=== PATIENT | female | born 1985 | race Caucasian/White ===

== ENCOUNTER 2021-06-16 14:24 | Outpatient (REF) | payer MEDICAID, SELFPAY | END 2021-06-16 14:25 | disposition home or self-care (01) | LOC: HO.LAB 14:24 | PROVIDERS: PCP Internal Medicine; Visit Provider Internal Medicine | DX: Z20.822 Contact with and (suspected) exposure to COVID-19 (principal) | CPT/HCPCS: C9803; U0003; U0005 ==

== ENCOUNTER 2022-02-18 08:52 | Emergency (ER) | payer MEDICAID, SELFPAY ==
[2022-02-18 09:42] VITALS: BP 134/85; PULSE 70; RESP 16; TEMP 36.9; O2SAT 97; BMI 32.3
[2022-02-18 10:08] LABS: COVID-19 Test Negative (Negative); IDNOW Serial# 9DB6401D
[2022-02-18 10:09] LABS: IDNOW Serial# 55D5AD1C; Influenza A Negative (Negative); Influenza B2 Negative (Negative)
[2022-02-18 11:35] VITALS: BP 130/89; PULSE 77; RESP 18; TEMP 36.7; O2SAT 97
--- NOTE | 2022-02-18 11:52 | ED_ITS ---
HPI - General Adult General Chief complaint: Upper Respiratory Symptoms Stated complaint: sorethroat , ear pain Time Seen by Provider: 02/18/22 11:19 Source: patient Mode of arrival: ambulatory Limitations: no limitations History of Present Illness HPI narrative: [age] year female presents to ED for sore throat, ear pain, and body aches for a few days. Patient states no chest pain or shortness of breath. Patient denies any coughing. Patient denies any swelling of lower extremities, redness, chest pain, shortness of breath, abdominal pain, diarrhea, neck stiffness, photophobia, dysuria, hematuria, or flank pain Related Data Allergies Allergy/AdvReac Type Severity Reaction Status Date / Time No Known Allergies Allergy Verified 02/18/22 09:42 Review of Systems Review of Systems: Sore throat, ear pain, body aches, and headache Yes all other systems are reviewed and are negative [facility] Social History Social History Advance Directives: No Advance Directives Information Provided: No Physical Exam ED Vital Signs: Vital Signs - 24 hr 02/18/22 09:42 02/18/22 11:35 Temperature 98.5 F 98.1 F Pulse Rate 70 77 Respiratory Rate 16 18 Blood Pressure 134/85 130/89 Pulse Oximetry 97 97 BMI result Body Mass Index 32.3 Const General: cooperative, healthy appearing, comfortable, no acute distress, well developed, alert, awake and Physically active Orientation/consciousness: oriented to time and patient [facility]3 [facility]: Yes normal to inspection, Yes No palpable skull fracture present, Yes normocephalic, Yes atraumatic and No abrasion Ears: hearing grossly normal bilaterally, external ears normal, TM's normal bilaterally, EAC's normal, mastoids normal and no periauricular adenopathy Throat: Yes posterior oropharynx normal, Yes tonsils normal and Yes uvula midline Eyes General: appearance normal, both eyes and all related structures Neck Neck: Yes normal visual inspection, Yes full ROM, Yes no lymphadenopathy, Yes no meningeal signs, Yes trachea midline, Yes supple, No anterior neck swelling and No tender Chest Chest palpation & inspection: normal inspection of the chest and normal palpation of entire chest wall Resp Effort & Inspection: normal respiratory effort and able to speak in complete sentences Auscultation: clear to auscultation bilaterally Cardio Jugular venous distension: no JVD Heart sounds: S1 normal heart sound present and S2 normal heart sound present GI Inspection: Yes normal to inspection and No abdominal wall ecchymosis Palpation (GI): Soft to palpation, not firm, nontender, no guarding and not rigid General: No CVA tenderness and Yes no CVA tenderness Back/Spine/Pelvis Back: no CVA tenderness, No CVA tenderness and No back tenderness Skin General skin exam: no rashes or lesions noted and elasticity normal Neuro General: oriented to time, patient oriented x3, gait normal and no meningeal signs Cranial nerves: Yes CN's II-XII intact bilaterally Extrem General: Yes normal to inspection and Yes full ROM Psych Appearance: grossly normal, well kempt and not disheveled Course Course Course Narrative: COVID and influenza swab ordered. Reevaluation(s) Reevaluation #1: Patient well-appearing. Strep ordered. Will call with results. COVID influenza negative Time: 11:57 Medical Decision Making [facility] Narrative Medical decision making narrative: Viral syndrome Lab Data Labs: Lab Results 02/18/22 02/18/22 02/18/22 Range/Units 09:43 09:43 11:38 COVID-19 (THANH) Negative (Negative) COVID-19 Clin Com See Note Influenza Type A (ANDREA) Negative (Negative) Influenza Type B (ANDREA) Negative (Negative) Influenza A & B Note See Note S. pyogenes GrpA ANDREA Negative (Negative) Discharge Plan Discharge Clinical Impression: Viral syndrome Patient Disposition: Home, Self-Care Instructions: Viral Syndrome (ED) Additional Instructions: Your COVID swab, influenza, and strep swab came back negative. Recommend rest, oral hydration and brat diet ( bananas, rice, toast, applesauce}. Return to ED immediately for any chest pain, shortness of breath, weakness, dizziness, drooling, change in voice, inability tolerate solid food/liquid, ear discharge, worsening ear pain, neck stiffness, headache, photophobia, abdominal pain, dysuria, hematuria, flank pain, coughing up blood, or any other concerning symptoms. Motrin/Tylenol can be given for pain relief. Please follow-up primary care provider Stand Alone Forms: Work/School Release Interventions: ED Discharge Assessment Last Done: 02/18/22 12:01 Discharge Date/Time: 02/18/22 12:05 Print Language: Macedonian
[2022-02-18 11:55] LABS: Strep A Nucleic Acid Negative (Negative)
== END 2022-02-18 12:05 | disposition home or self-care (01) ==
PROVIDERS: Physician Assistant; Emergency Provider Emergency Medicine; PCP Internal Medicine
DX: B34.9 Viral infection, unspecified (principal); Z20.822 Contact with and (suspected) exposure to COVID-19
CPT/HCPCS: 36415; 87502; 87635; 87651; 99281; 99283

== ENCOUNTER 2023-11-15 10:14 | Outpatient (REF) | payer MEDICAID, SELFPAY ==
[2023-11-15 16:25] LABS: CT PCR NOT DETECTED (Not Detect.); NG PCR NOT DETECTED (Not Detect.)
== END 2023-11-15 10:15 | disposition home or self-care (01) ==
LOC: HO.CHCLNP 10:14
PROVIDERS: Visit Provider Internal Medicine
DX: N30.01 Acute cystitis with hematuria (principal)
CPT/HCPCS: 0353U; 87086; 87088; 87186

== ENCOUNTER 2023-12-12 14:38 | Outpatient (REF) | payer MEDICAID, SELFPAY ==
[2023-12-13 08:11] LABS: HIV AB/AG Nonreactive (Nonreactive); HIV Num 1 0.05 S/CO (0.00-0.99); ~HepC Num1 0.12 S/CO (0.00-0.79); ~Hepatitis C Antibody Nonreactive (Nonreactive)
== END 2023-12-12 14:39 | disposition home or self-care (01) ==
LOC: HO.CHCLDS 14:38
PROVIDERS: Visit Provider Internal Medicine
DX: Z00.00 Encounter for general adult medical examination without abnormal findings (principal)
CPT/HCPCS: 36415; 86803; 87389

== ENCOUNTER 2024-04-03 12:04 | Outpatient (REF) | payer MEDICAID, SELFPAY | END 2024-04-03 12:05 | disposition home or self-care (01) | LOC: HO.LNP 12:04 | PROVIDERS: Visit Provider Family Medicine | DX: Z12.4 Encounter for screening for malignant neoplasm of cervix (principal) | CPT/HCPCS: 87625; 88175 ==

== ENCOUNTER 2024-12-18 15:41 | Outpatient (REF) | payer MEDICAID, SELFPAY ==
[2024-12-18 18:34] LABS: MANUAL DIFF FLAG NO
[2024-12-18 18:38] LABS: Appearance Urine Cloudy; Color Urine Yellow; Glucose Urine UA Negative (Negative); Leukocyte Esterase Urine Trace (Negative); Nitrite Urine Negative (Negative); PH 6.5 (5.0-9.0); Specific Gravity - Urine 1.025 (1.005-1.025); UMIC TRIGGER UACC YES; Urine Blood Large (3+) (Negative); Urine Ketones Negative (Negative); Urine Protein Negative (Neg-Trace)
[2024-12-18 18:39] LABS: Basophils Percent Auto 0.4 % (0-2); Eosinophils Absolute Auto 0.1 X10*3/uL (0.0-0.4); Eosinophils Percent Auto 1.4 % (0-4); Hemoglobin 9.7 g/dl (12.0-16.0); Imm Gran Abs Auto 0.03 X10*3/uL (0.00-0.03); Imm Gran Pct Auto 0.4 % (0.0-0.4); Lymphocytes Percent Auto 28.2 % (20-40); Mean Corpuscular HGB Conc 31.3 g/dl (31.0-35.0); Mean Corpuscular Hemoglobin 23.6 pg (27.0-33.0); Mean Corpuscular Volume 75.4 fL (80.0-98.0); Mean Platelet Volume 12.8 fL (9.4-12.3); Monocytes Absolute Auto 0.6 X10*3/uL (0.1-1.2); Monocytes Percent Auto 8.5 % (2-11); Neutrophils Absolute Auto 4.4 x10*3/uL (2.0-8.3); Neutrophils Percent Auto 61.1 % (45-73); Platelet Count 249 X10*3/uL (160-400); Red Blood Count 4.11 X10*6/uL (4.20-5.50); Red Cell Distribution Width 17.2 % (11.0-16.0); White Blood Count 7.2 X10*3/uL (4.8-10.8)
[2024-12-18 18:47] LABS: Bacteria Urine 4+ (None Seen); Hyaline Casts Urine 0-2 /LPF (0-2); RBC Urine >20 /HPF (0-2); UACC Culture Trigger YES
--- OUTSIDE RECORDS SUMMARY | 2024-12-18 19:00 | XMS_ITS | Encounter Summary ---
Author Organization [employer] Address [address] [facility] 7 [place] [address] Care Team Providers Care Regional Ehs Manager Name Role Phone Daren Villanueva MD Primary Care Provider [phone] Encounter Details Date Type Department Care Team ([facility] st Contact Info) Description 12/18/2024 Orders Only [facility] MED & PEDS [address] [place] [address] Daren Villanueva MD [address] [place] [address] Social History Tobacco Use Types Packs/Day Years Used Date Smoking Tobacco: Never Smokeless Tobacco: Never Alcohol Use Standard Drinks/Week Comments Never 0 (1 standard drink = 0.6 oz pur e alcohol) Depression Answer Date Recorded Patient Health Questionnaire-9 Score 0 12/12/2023 Patient Health Questionnaire-9 Score 0 12/12/2023 Last PHQ-9: Questionnaire Data Not on file 0 12/12/2023 Housing Stability Answer Date Recorded What is your housing situation today? I have kay jon 12/18/[address] you li ve. Do you have problems with any of the following? None of the above 12/18/2024 Food Insecurity Answer Date Recorded Within the past 12 months, y ou worried that your food would run out before you got money to buy more: Never True 12/18/2024 Within the past 12 months,th e food you bought just didn't last and you didn't have enough money to get more: Never True 08/2025 Transportation Answer Date Recorded In the past 12 months, has l ack of transportation kept you from medical appts, meetings, work or from getting things needed for daily living? No 12/18/2024 Utilities Answer Date Recorded In the past 12 months, has t he electric, gas, oil or water company threatened to shut off services in your home? No 12/18/2024 Depression Answer Date Recorded Patient Health Questionnaire-2 Score 0 12/12/2023 Internet Access Answer Date Recorded Internet Access Q1 Yes 12/18/2024 Internet Access Q2 Not on file 12/18/2024 Comments No Sex and Gender Information Value Date Recorded Sex Assigned at Female 08/09/2022 10:22 AM EDT Legal Sex Female 10:22 AM EDT Gender Identity Female 08/09/2022 10:22 AM EDT Sexual Orientation Straight 08/09/2022 10 :22 AM EDT documented as of this encounter Plan of Treatment Not on file documented as of this encounter Procedures Procedure Name Priority Date/Time Associated Diagnosis Comments URINALYSIS, COMPLETE, WITH REFLEX TO CULTURE Routine 12/18/2024 3:50 PM EDT documented in this encounter Results * (ABNORMAL) Urinalysis, Complete, with Reflex to Culture (12/18/2024 3:50 PM EDT) Color Urine Yellow [facility] Appearance Urine Cloudy [facility] PH 6.5 5.0 - 9.0 [facility] Glucose Urine UA Negative Negative mg/dL [facility] Urine Blood Large (3+)(A) Negative [facility] Specific [place] - Urine 1.025 1.005 - 1.025 [facility] Urine Protein Negative Neg-Trace mg/dL [facility] Urine Ketones Negative Negative mg/dL [facility] Nitrite Urine Negative Negative [facility] Leukocyte Esterase Urine Trace(A) Negative [facility] RBC Urine >20(A) 0 - 2 /HPF [facility] Urine WBC 11-20(A) 0 - 5 /HPF [facility] Urine Squamous Epithelial Cell 6-10 0 - 2 /HPF [facility] Urine Bacteria 4+ None Seen [facility] Hyaline Casts, Urine 0-2 0 - 2 /LPF [facility] 12/18/2024 3:50 PM EDT 12/18/2024 6:18 PM EDT Narrative [facility] - 12/18/2024 6:49 PM EDT [id number], Clean Catch us Daren Villanueva MD LAB URINE ORDERABLES Final Result [facility] [address] [place] [address] [phone] documented in this encounter Visit Diagnoses Not on filedocumented in this encounter Additional Health Concerns Assessment Noted Time PHQ-9 Depression Total Score: 0 12/12/19 24 2:36 PM EST documented as of this encounter Care Teams Regional Ehs Manager Relationship Specialty Start Date End Date Daren Villanueva MD [address] [place] [id number] PCP - General Internal Medicine 08/30/11 documented as of this encounter
--- OUTSIDE RECORDS SUMMARY | 2024-12-18 19:00 | XMS_ITS | Encounter Summary ---
Author Organization [employer] Address [address] [place] [address] [address] [place] [address] Care Team Providers Care Group Home Paraprofessional Name Role Phone Daren Villanueva MD Primary Care Provider [phone] Encounter Details Date Type Department Care Team ([facility] Contact Info) Description 04/18/2023 Telephone [facility] CH[facility] MED & PEDS [address] [place] [address] Daren Villanueva MD [address] [place] [address] Social History Tobacco Use Types Packs/Day Years Used Date Smoking Tobacco: Never Smokeless Tobacco: Never Comments Yes Sex and Gender Information Value Date Recorded Sex Assigned at Female 08/09/2022 10:22 AM EDT Legal Sex Female 10:22 AM EDT Gender Identity Female 08/09/2022 10:22 AM EDT Sexual Orientation Straight 08/09/2022 10 :22 AM EDT documented as of this encounter Plan of Treatment Not on file documented as of this encounter Visit Diagnoses Not on filedocumented in this encounter Care Teams Group Home Paraprofessional Relationship Specialty Start Date End Date Daren Villanueva MD [address] [place] [address] PCP - General Internal Medicine 08/30/11 documented as of this encounter
--- OUTSIDE RECORDS SUMMARY | 2024-12-18 19:00 | XMS_ITS | Encounter Summary ---
Author Organization [employer] Address [address] [facility] [address] [place] [address] Care Team Providers Care Motor Equipment Commanding Officer Name Role Phone Daren Villanueva MD Primary Care Provider [phone] Encounter Details Date Type Department Care Team (Latest Contact Info) Description 12/18/2024 Travel Social History Tobacco Use Types Packs/Day Years [...] documented as of this encounter Care Teams Motor Equipment Commanding Officer Relationship Specialty Start Date End Date Daren Villanueva MD [address] [place] [address] PCP - General Internal Medicine 08/30/11 documented as of this encounter
--- OUTSIDE RECORDS SUMMARY | 2024-12-18 19:00 | XMS_ITS | Encounter Summary ---
Author Organization [employer] Address [address] [facility] [address] [place] [address] Care Team Providers Care Family Reunification Specialist Name Role Phone Daren Villanueva MD Primary Care Provider [phone] Reason for Visit * Reason Comments Pre-visit Planning SDOH unable to reach LVM Encounter Details Date Type Department Care Team ([facility] st Contact Info) Description 12/11/2024 Patient Outreach [facility] CH[facility] MED & PEDS [address] [facility] [place] [address] Daren Villanueva MD [address] [place] [address] Pre-visit Planning (SDOH unable to reach LVM ) Social History Tobacco Use Types Packs/Day Years [...] housing situation today? I have kay jon 07/17/[address] you li ve. Do you have problems with any of the following? Pests such as bugs, ants, or mice 07/17/2023 Food Insecurity Answer Date Recorded Within the past 12 months, y ou worried that your food would run out before you got money to buy more: Never True 08/15/2023 Within the past 12 months,th e food you bought just didn't last and you didn't have enough money to get more: Never True 03/2023 Transportation Answer Date Recorded In the past 12 months, has l ack of transportation kept you from medical appts, meetings, work or from getting things needed for daily living? No 08/15/2023 Utilities Answer Date Recorded In the past 12 months, has t he electric, gas, oil or water company threatened to shut off services in your home? No 12/02/2023 Depression Answer Date Recorded Patient Health Questionnaire-2 Score 0 12/12/2023 Comments No Sex and Gender Information Value Date Recorded Sex Assigned at Female 08/09/2022 10:22 AM EDT Legal Sex Female 10:22 AM EDT Gender Identity Female 08/09/2022 10:22 AM EDT Sexual Orientation Straight 08/09/2022 10 :22 AM EDT documented as of this encounter Progress Notes * Cindy Sethi - 12/11/2024 3:57 PM EST [facility] placed outbound call to patient to complete pre-visit planning. No answer at this time. Patient name and were not confirmed. CC left voicemail requesting return call. Direct contactinformation provided. documented in this encounter Plan of Treatment Not on file documented as of this encounter Visit Diagnoses Not on filedocumented in this encounter Additional Health Concerns Assessment Noted Time PHQ-9 Depression Total Score: 0 12/12/19 24 2:36 PM EST documented as of this encounter Care Teams Family Reunification Specialist Relationship Specialty Start Date End Date Daren Villanueva MD [address] [place] [id number] PCP - General Internal Medicine 08/30/11 documented as of this encounter
--- OUTSIDE RECORDS SUMMARY | 2024-12-18 19:00 | XMS_ITS | Clinical Summary ---
Author Organization [employer] Address [address] [place] [address] [address] [place] [address] Care Team Providers Care Leguillon Debeader Name Role Phone Daren Villanueva MD Primary Care Provider [phone] Allergies Active Allergy Reactions Criticality Noted Date Comments Plymouth Meal (Obsolete) Itching,Shortness of breath,Swelling,Whee zing High 02/17/2007 Plymouth Oil 04/02/2024 Apple Fruit Extract Itching,Swelling 02/17/2005 Apple Juice 04/02/2024 Yoo Itching,Shortness of breath,Swelling High 02/17/2005 Other Reaction(s): eyes itching, face swelling Gramineae Pollens 04/02/2024 Kiwi Extract Itching 02/17/2005 Latex Itching 10/29/2020 no reactions to latex in past but mulitple predictors of allergy from food allergies Pear Itching 02/17/2005 Pineapple Itching 02/17/2005 Pollen Extract Cough,Itching,Runny nose,Shortness of breath,Swelling,Whee zing High 01/23/2001 Medications albuterol 108 (90 Base) MCG/ACT inhaler Inhale 2 puffs every 4 (four) hours if needed for wheezing. 18 g 023 Active MV & Min w/FA-DHA ([facility]) 0.4-25 MG chewable tablet TAKE 1 TABLET BY MOUTH EVERY DAY FOR 90 DAYS *NOT COVERED* 023 Active metroNIDAZOLE (Metrogel) 0.75 % vaginal gel Metronidazole 0.75% gel twice weekly for > 3 months for recurrent vaginitis 70 g 5 024 Active azelastine (Astelin) 0.1 % nasal sprayIndication s:Mild intermittent asthma without complication Administer 1 spray into each nostril 2 times daily. Use in each nostril as directed 30 mL 3 025 2025 Active loratadine (Claritin) 10 MG tabletIndicatio ns:Mild intermittent asthma without complication TAKE ONE TABLET DAILY 90 tablet 025 Active Tirzepatide-Javi ght Management (Zepbound) 2.5 MG/0.5ML solution auto-injectorIn dications:Mild intermittent asthma without complication,Cl ass 1 obesity due to excess calories without serious comorbidity with body mass index (BMI) of 30.0 to 30.9 in adult Inject 0.5 mL (2.5 mg) under the skin 1 (one) time per week. 2 mL 1 025 Active azelastine (Astelin) 0.1 % nasal spray Administer 1 spray into each nostril 2 times daily. Use in each nostril as directed 30 mL 3 023 2024 Discontinued(R eorder (will not trigger notification to Pharmacy)) loratadine (Claritin) 10 MG tablet TAKE ONE TABLET DAILY 90 tablet 023 2024 Discontinued(R eorder (will not trigger notification to Pharmacy)) Active Problems Problem Noted Date Diagnosed Date Cervical cancer screening 04/03/2024 Class 2 obesity 04/02/2024 Gestational diabetes mellitus (GDM) 04/02/2024 Mild intermittent asthma without complication Encounters Date Type Department Care Team Description 12/18/2024 2:45 PM EDT Office Visit [facility] [address] [place] [address] Daren Villanueva MD Annual physical exam (Primary Dx); Mild intermittent asthma without complication; Dietary counseling; Exercise counseling; Class 1 obesity due to excess calories without serious comorbidity with body mass index (BMI) of 30.0 to 30.9 in adult; Encounter for screening mammogram for malignant neoplasm of breast 12/18/2024 Orders Only [facility] [address] [place] [address] Daren Villanueva MD 12/18/2024 Travel 12/11/2024 Patient Outreach [facility] [address] [place] [address] Daren Villanueva MD Pre-visit Planning ([facility] unable to reach [facility] ) from Last 3 Months Immunizations Name Administration Dates Next Due Influenza Injectable Quadriv alant Preservative Free IIV4 MDCK 08/23/2022 Influenza injectable quadriv alent IIV4 with preservative 08/02/2019,07/10/2015 Tdap 12/12/2023,03/08/2013 Family History Medical History Relation Name Comments Prostate cancer Father Breast cancer Maternal Grandmother Skin cancer Maternal Grandmother Relation Name Status Comments Father Maternal Grandmother Social History Tobacco Use Types Packs/Day Years Used Date Smoking Tobacco: Never Smokeless Tobacco: Never Tobacco Cessation:Counseling Given: Not Answered Alcohol Use Standard Drinks/Week Comments Never 0 [...] Orientation Straight 08/09/2022 10 :22 AM EDT Last Filed Vital Signs Vital Sign Reading Time Taken Comments Blood Pressure 133/85 12/18/2024 2:53 PM EDT Pulse 85 12/18/2024 2:53 PM EDT Temperature 37 ??C (98.6 ??F) 12/18/2024 2:53 PM EDT Respiratory Rate 16 12/18/2024 2:53 PM EDT Oxygen Saturation 96% 12/18/2024 2:53 PM EDT Inhaled Oxygen Concentration - - Weight 92.1 kg (203 lb) 12/18/2024 2:53 PM EDT Height 168 cm (5' 6.14 ) 12/18/2024 2:53 PM EDT Body Mass Index 32.63 12/18/2024 2:53 PM EDT Plan of Treatment Health Maintenance Due Date Last Done Comments Lipid Panel 1984 Family Planning (PISQ) 1999 Hepatitis B Vaccines (1 of 3 - 19+ 3-dose series) 2003 Pneumococcal Vaccine: Pediatrics (0 to 5 Years) and At-Risk Patients (6 to 49) Years) (1 of 2 - PCV) 2003 COVID-19 Vaccine ( - 2023-2 5 season) 2024 09/29/2022, 08/23/2022 Influenza Vaccine (#1) 2024 2, 08/02/2019, 07/10/2015 Mammogram 2024 Depression Screening 12/11/2024 12/12/2023, 12/12/2023 Alcohol/Substance Use Screening 12/18/2025 12/18/2024 SDOH Screening 12/18/2025 12/18/2024 Tobacco Screening 12/18/2025 12/18/2024 Cervical Cancer Screening 04/03/2027 HPV/Cotest 04/03/2027 08/15/2018 Pap Smear 04/03/2027 04/03/2024 DTaP/Tdap/Td Vaccines (3 - T d or Tdap) 12/11/2033 12/12/2023, 03/08/2013 Zoster Vaccines (1 of 2) 2034 RSV Patients and Patients Aged 60 years or older (1 - 1-dose 75+ series) 2059 HIV Screening Completed 12/12/2023 Hepatitis C Screening Completed 12/12/2023 HIB Vaccines Aged Out No longer eligi ble based on patient's age to complete this topic HPV Vaccines Aged Out No longer eligi ble based on patient's age to complete this topic Hepatitis A Vaccines Aged Out No long er eligible based on patient's age to complete this topic IPV Vaccines Aged Out No longer eligi ble based on patient's age to complete this topic Meningococcal Vaccine Aged Out No jsaon marcellus eligible based on patient's age to complete this topic RSV under 20 months Aged Out No longe r eligible based on patient's age to complete this topic Rotavirus Vaccines Aged Out No longer eligible based on patient's age to complete this topic Procedures Procedure Name Priority Date/Time Associated Diagnosis Comments URINALYSIS, COMPLETE, WITH REFLEX TO CULTURE Routine 12/18/2024 3:50 PM EDT CBC WITH AUTO DIFFERENTIAL Routine 12/18/2024 3:46 PM EDT Annual physical exam THINPREP?? IMAGING PAP REFL HPV MRNA(IF ASCUS,ASC-H,LSIL) Routine 04/03/2024 12:00 AM EDT Acute cystitis with hematuria HEPATITIS C ANTIBODY Routine 12/12/2023 2:41 PM EST Annual physical exam HIV 1/2 ANTIGEN/ANTIBODY, FOURTH GENERATION W/RFL Routine 12/12/2023 2:41 PM EST Annual physical exam ZZZ HISTORICAL HPV MRNA E6/E7 Routine 08/15/2018 10:08 AM EST from Last 3 Months or Most Recently Relevant to Health Maintenance Results * (ABNORMAL) Urinalysis, Complete, with Reflex to Culture (12/18/2024 3:50 PM EDT) Color Urine Yellow [facility] Appearance Urine Cloudy [facility] PH 6.5 5.0 - 9.0 [facility] Glucose Urine UA Negative Negative mg/dL [facility] Urine Blood Large (3+)(A) Negative [facility] Specific [place] - Urine 1.025 1.005 - 1.025 [facility] Urine Protein Negative Neg-Trace mg/dL [facility] Urine Ketones Negative Negative mg/dL [facility] Nitrite Urine Negative Negative [facility] Leukocyte Esterase Urine Trace(A) Negative [facility] RBC Urine >20(A) 0 - 2 /HPF [facility] Urine WBC 11-20(A) 0 - 5 /HPF [facility] Urine Squamous Epithelial Cell 6-10 0 - 2 /HPF [facility] Urine Bacteria 4+ None Seen [facility] Hyaline Casts, Urine 0-2 0 - 2 /LPF [facility] 12/18/2024 3:50 PM EDT 12/18/2024 6:18 PM EDT Narrative [facility] - 12/18/2024 6:49 PM EDT [id number], Clean Catch us Daren Villanueva MD LAB URINE ORDERABLES Final Result [facility] [address] [place] [phone] * (ABNORMAL) CBC auto differential (12/18/2024 3:46 PM EDT) White Blood Count 7.2 4.8 - 10.8 X10*3/uL [facility] Red Blood Count 4.11(L) 4.20 - 5.50 X10*6/uL [facility] Hemoglobin 9.7(L) 12.0 - 16.0 g/dl [facility] Hematocrit 31.0(L) 37.0 - 47.0 % [facility] Mean Corpuscular Volume 75.4(L) 80.0 - 98.0 fL [facility] Mean Corpuscular Hemoglobin 23.6(L) 27.0 - 33.0 pg [facility] Mean Corpuscular HGB Conc 31.3 31.0 - 35.0 g/dl [facility] Red Cell Distribution Width 17.2(H) 11.0 - 16.0 % [facility] Platelet Count 249 160 - 400 X10*3/uL [facility] Mean Platelet Volume 12.8(H) 9.4 - 12.3 fL [facility] Neutrophils Percent Auto 61.1 45 - 73 % [facility] Imm Gran Pct Auto 0.4 0.0 - 0.4 % [facility] Lymphocytes Percent Auto 28.2 20 - 40 % [facility] Monocytes Percent Auto 8.5 2 - 11 % [facility] Eosinophils Percent Auto 1.4 0 - 4 % [facility] Basophils Percent Auto 0.4 0 - 2 % [facility] NRBC Pct Auto 0.0 0.0 - 0.2 /100WBC [facility] Neutrophils Absolute Auto 4.4 2.0 - 8.3 x10*3/uL [facility] Imm Gran Abs Auto 0.03 0.00 - 0.03 X10*3/uL [facility] Lymphocytes Absolute Auto 2.0 1.2 - 4.9 X10*3/uL [facility] Monocytes Absolute Auto 0.6 0.1 - 1.2 X10*3/uL [facility] Eosinophils Absolute Auto 0.1 0.0 - 0.4 X10*3/uL [facility] Basophils Absolute Auto 0.0 0.0 - 0.2 X10*3/uL [facility] NRBC Abs Auto 0.000 0.0 - 0.012 X10*3/uL [facility] Blood Venous blood specimen / Unknown 12/18/2024 3:46 PM EDT 12/18/2024 6:30 PM EDT us Daren Villanueva MD LAB BLOOD ORDERABLES Final Result [facility] [address] [place] [phone] * ThinPrep?? Imaging Pap Refl HPV mRNA(if ASCUS,ASC-H,LSIL,HSIL,MAICO)Refl Genotype (04/03/2024 12:00 AM EDT) HPV nRNA E6/E7 [facility] HPV 16,18/45 [facility] SOURCE: SEE NOTE [facility] Comment:None given Report Status: [facility] Clinical Information: SEE NOTE [facility] Comment:None given LMP: SEE NOTE [facility] Comment:NONE GIVEN Prev. PAP: SEE NOTE [facility] Comment:NONE GIVEN Prev. BX: SEE NOTE [facility] Comment:NONE GIVEN Statement Of Adequacy: SEE NOTE [facility] Comment:Satisfactory for marquita luation.Endocervical/transformation zone componentpresent. General Categorization: [facility] Interpretation/Result: SEE NOTE [facility] Comment:Cytology Results: Ne gative for intraepitheliallesion or malignancy. Cytology Comment SEE NOTE [facility] Comment:This Pap test has be en evaluated with computerassisted technology. Heater Operator: SEE NOTE [facility] Comment:SXA, CT(ASCP)CT scre ening location: [address] [address] Review Heater Operator: [facility] Pathologist [facility] PAP Infection [facility] See Note SEE NOTE [facility] Comment:EXPLANATORY NOTE:The Pap is a screening test for cervical cancer. It isnot a diagnostic test and is subject to false negativeand false positive results. It is most reliable when asatisfactory sample, regularly obtained, is submittedwith relevant clinical findings and history, and whenthe Pap result is evaluated along with historic andcurrent clinical information.THIS TEST WAS PERFORMED AT:[facility] [address] [id number] PICKETT MD 04/03/2024 04/03/2024 us Diann Pineda MD LAB CYTOLOGY ORDERABLES Final Result Performing Organization Address [facility]/ZIP Co de Phone Number [facility] [address] [place] [phone] * Hepatitis C Ab (12/12/2023 2:41 PM EST) Hepatitis C Antibody Nonreactive Nonreactive [facility] Comment:Antibodies to HCV no t detected; does not exclude early acuteHCV infection. Blood Venous blood specimen / Unknown 12/12/2023 2:41 PM EST 12/12/2023 5:21 PM EST us Daren Villanueva MD LAB BLOOD ORDERABLES Final Result Performing Organization Address [facility] Co de Phone Number [facility] [address] [place] [phone] * HIV-1/2 Antigen and Antibodies, Fourth Generation, with Reflexes (12/12/2023 2:41 PM EST) HIV AB/AG Nonreactive Nonreactive [facility] Comment:HIV-1 p24 Ag and/or HIV-1/HIV-2 Ab not detected.A test result that is nonreactive does not exclude thepossibility of exposure to or infection with HIV-1 and/orHIV-2. Nonreactive results in this assay for individualswith prior exposure to HIV-1 and/or HIV-2 may be due toantigen and antibody levels that are below the limit ofdetection of this assay.The [employer] HIV Ag/Ab Combo assay result andsupplemental assay results should be interpreted inconjunction with the patient's clinical presentation,history and other laboratory results. If the results areinconsistent with clinical evidence, additional testing issuggested to confirm the result. Blood Venous blood specimen / Unknown 12/12/2023 2:41 PM EST 12/12/2023 5:21 PM EST us Daren Villanueva MD LAB BLOOD ORDERABLES Final Result [facility] [address] [place] [address] [phone] * HPV mRNA E6/E7 (08/15/2018 10:08 AM EST) HPV mRNA E6/E7 Not Detected NOT DETECTED [facility] Comment: This test was performed using the APTIMA(R) HPV Assay ([employer] This assay detects E6/E7 viral messenger RNA (mRNA) from 14 high-risk HPV types (16,18,31,33,35,39,45,51, 52,56,58,59,66,68). For additional information please refer to: http://education.Geoforce/faq/DOY969y4 (This link is being provided for informational/ educational purposes only.) The analytical performance characteristics of this assay have been determined by [facility] [place], [place]. The modifications have not been cleared or approved by the FDA. This assay has been validated pursuant to the CLIA regulations and is used for clinical purposes. Test [facility]formed by [facility], [facility], [address] [place] [address] Rickie Cobian M.D., Ph.D., Director of Laboratories , CLIA [id number] Please note: ??Effective 06/21/2016, HPV testing will be performed using [employer]'s APTIMA test which targets mRNA. Detecting mRNA instead of DNA, as in older methods, offers significant improvements in specificity. 08/15/2018 10:0 8 AM EST us Nia [facility] HISTORICAL/NON ORDERABLE LABS Final Result [facility] [address] from Last 3 Months or Most Recently Relevant to Health Maintenance Insurance [facility] C3 Care Teams Leguillon Debeader Relationship Specialty Start Date End Date Daren Villanueva MD [address] [place] [address] ANALILIA Matias PCP - General Internal Medicine 08/30/11
--- OUTSIDE RECORDS SUMMARY | 2024-12-18 19:00 | XMS_ITS | Clinical Summary ---
Author Organization [facility] [facility] it Address [address] [place] [address] Care Team Providers Care Land Surveyor Assistant Name Role Phone Unavailable Primary Care Provider Unavailabl e Social History Tobacco Use Types Packs/Day Years Used Date Smoking Tobacco: Never Assessed Comments Unknown Sex and Gender Information Value Date Recorded Sex Assigned at Not on file Legal Sex Female 2:25 AM EST Gender Identity Not on file Sexual Orientation Not on file Plan of Treatment Health Maintenance Due Date Last Done Comments Breast Cancer Screening 1984 DTaP,Tdap,and Td Vaccines (1 - Tdap) 2003 Hepatitis B Vaccines (1 of 3 - 19+ 3-dose series) 2003 Cervical Cancer Screening: P ap Smear 2005 COVID-19 Vaccine (2023-2 5 season) 2024 Influenza Vaccine (#1) 2024 HIB Vaccines Aged Out No longer eligi [...] on patient's age to complete this topic MMR Vaccines Aged Out No longer eligi ble based on patient's age to complete this topic Meningococcal ACWY Vaccine Aged Out N o longer eligible based on patient's age to complete this topic Meningococcal B Vacine Aged Out No lo nger eligible based on patient's age to complete this topic Pneumococcal Vaccine: Pediat rics (0 to 5 Years) and At-Risk Patients (6 to 64 Years) Aged Out No longer eligible b ased on patient's age to complete this topic RSV Immunization Patients Un mariel 20 months Aged Out No longer eligible b ased on patient's age to complete this topic Varicella Vaccines Aged Out No longer eligible based on patient's age to complete this topic
--- OUTSIDE RECORDS SUMMARY | 2024-12-18 19:00 | XMS_ITS | Encounter Summary ---
Author Organization [employer] Address [address] [place] [address] [address] [place] [address] Care Team Providers Care Readiness Paraprofessional Name Role Phone Daren Villanueva MD Primary Care Provider [phone] Reason for Referral * Imaging (Routine) - Closed Specialty Diagnoses / Procedures Referred By Contapril t Referred To Contact Radiology Diagnoses Encounter for screening mammogram for malignant neoplasm of breast Procedures BI Mammogram Screening Tomosynthesis Bilateral Daren Villanueva MD [address] [place] [address] Phone: tel: fax: [address] Phone: tel: fax: Referral ID Status Reason Start Date Expiration Date Visits Re quested Visits Authorized [id number] Closed 12/18/2024 12/18/2025 1 1 Reason for Visit * Reason Comments Annual Exam Encounter Details Date Type Department Care Team (Late st Contact Info) Description 12/18/2024 2:45 PM EDT Office Visit [facility] [address] [place] [address] Daren Villanueva MD [address] [place] [address] Annual physical exam (Primary Dx); Mild intermittent asthma without complication; Dietary counseling; Exercise counseling; Class 1 obesity due to excess calories without serious comorbidity with body mass index (BMI) of 30.0 to 30.9 in adult; Encounter for screening mammogram for malignant neoplasm of breast Social History Tobacco Use Types Packs/Day Years [...] AM EDT documented as of this encounter Last Filed Vital Signs Vital Sign Reading [...] Mass Index 32.63 12/18/2024 2:53 PM EDT documented in this encounter Progress Notes * Daren Villanueva MD - 12/18/2024 2:45 PM EDT Subjective Patient ID: Lakia Brewster is a 39 y.o. female who presents for Annual Exam. HPI Feels overall well. Denies any acute event since the last office visit. Patient Active Problem List Diagnosis Mild intermittent asthma without complication Class 2 obesity Gestational diabetes mellitus (GDM) Cervical cancer screening Current Outpatient Medications on File Prior to Visit Medication Sig Dispense Refill albuterol 108 (90 Base) MCG/ACT inhaler Inhale 2 puffs every 4 (four) hours if needed for wheezing.18 g 0 azelastine (Astelin) 0.1 % nasal spray Administer 1 spray into each nostril 2 times daily. Use in each nostril as directed 30 mL 3 loratadine (Claritin) 10 MG tablet TAKE ONE TABLET DAILY 90 tablet 0 metroNIDAZOLE (Metrogel) 0.75 % vaginal gel Metronidazole 0.75% gel twice weekly for > 3 months for recurrent vaginitis 70 g 5 MV & Min w/FA-DHA ([facility] Gummy) 0.4-25 MG chewable tablet TAKE 1 TABLET BY MOUTH EVERY DAY FOR 90 DAYS *NOT COVERED* No current facility-administered medications on file prior to visit. Review of Systems Constitutional: Negative for activity change, appetite change, chills and diaphoresis. HENT: Negative for dental problem, drooling, ear discharge, ear pain and hearing loss. Eyes: Negative for pain, discharge and itching. Respiratory: Negative for cough, choking and chest tightness. Cardiovascular: Negative for chest pain and leg swelling. Gastrointestinal: Negative for blood in stool and diarrhea. Genitourinary: Negative for difficulty urinating, dyspareunia, dysuria, enuresis, flank pain, frequency and genital sores. Musculoskeletal: Negative for arthralgias, gait problem and joint swelling. Skin: Negative for pallor. Neurological: Negative for dizziness, seizures, speech difficulty, light- headedness and numbness. Psychiatric/Behavioral: Negative for behavioral problems, confusion and decreased concentration. Objective Physical Exam Constitutional: General: She is not in acute distress. Appearance: Normal appearance. She is not ill-appearing, toxic-appearing or diaphoretic. HENT: Head: Normocephalic. Right Ear: Tympanic membrane normal. There is no impacted cerumen. Left Ear: Tympanic membrane normal. There is no impacted cerumen. Nose: Nose normal. No congestion or rhinorrhea. Mouth/Throat: Mouth: Mucous membranes are moist. Eyes: General: No scleral icterus. Right eye: No discharge. Left eye: No discharge. Pupils: Pupils are equal, round, and reactive to light. Cardiovascular: Rate and Rhythm: Normal rate and regular rhythm. Heart sounds: No murmur heard. No friction rub. No gallop. Pulmonary: Effort: Pulmonary effort is normal. No respiratory distress. Breath sounds: No stridor. No wheezing, rhonchi or rales. Chest: Chest wall: No tenderness. Abdominal: General: There is no distension. Palpations: Abdomen is soft. There is no mass. Tenderness: There is no abdominal tenderness. There is no right CVA tenderness or left CVA tenderness. Musculoskeletal: General: Normal range of motion. Cervical back: Normal range of motion. Neurological: General: No focal deficit present. Mental Status: She is alert and oriented to person, place, and time. Psychiatric: Mood and Affect: Mood normal. Assessment/Plan Diagnoses and all orders for this visit: Annual physical exam Comments: Pt is to maintain a healthy and balanced diet Normal physical exam. No identified contraindication for patient's to participate in an exercise program. Orders: - CBC auto differential; Future - Comprehensive Metabolic Panel; Future - Lipid Panel, Standard; Future - HIV-1/2 Antigen and Antibodies, Fourth Generation, with Reflexes; Future - Hepatitis C Antibody with Reflex to HCV, RNA, Quantitative, Real-Time PCR; Future - RPR (Monitor) with Reflex to Titer; Future - Urinalysis w/reflex microscopic; Future - Trichomonas vaginalis RNA, Qualitative, TMA, Males; Future - TSH W/Reflex to FT4; Future - Syphilis Screen; Future - Comprehensive Metabolic Panel; Future - CBC auto differential; Future Mild intermittent asthma without complication Comments: quiescent x at least a year trigger: pollen. Orders: - azelastine (Astelin) 0.1 % nasal spray; Administer 1 spray into each nostril 2 times daily. Use in each nostril as directed - loratadine (Claritin) 10 MG tablet; TAKE ONE TABLET DAILY - Tirzepatide-Weight Management (Zepbound) 2.5 MG/0.5ML solution auto-injector; Inject 0.5 mL (2.5 mg) under the skin 1 (one) time per week. Dietary counseling Exercise counseling Class 1 obesity due to excess calories without serious comorbidity with body mass index (BMI) of 30.0 to 30.9 in adult Dietary Recommendations: Fruits, vegetables, whole grains, protein foods, and fat-free or low-fat dairy products are healthychoices. Eat different types of protein foods in your diet. This can include seafood, lean meats, poultry, beans, peas, lentils, nuts, seeds, soy products, and eggs. Limit foods and beverages higher in added sugars, saturated fat, and sodium. Exercise Recommendations: At least 150 minutes of moderate-intensity physical activity per week, or an equivalent combinationof moderate- and vigorous-intensity activity - Tirzepatide-Weight Management (Zepbound) 2.5 MG/0.5ML solution auto-injector; Inject 0.5 mL (2.5 mg) under the skin 1 (one) time per week. - Chlamydia/N. Gonorrhoeae RNA, TMA, Urogenitial Encounter for screening mammogram for malignant neoplasm of breast - BI Mammogram Screening Tomosynthesis Bilateral; Future documented in this encounter Plan of Treatment Scheduled Orders Name Type Priority Associated Diagnoses Orde r Schedule BI Mammogram Screening Tomosynthesis Bilateral Imaging Routine Encounter for screening mammogram for malignant neoplasm of breast Expected: 12/18/2024, Expires: 02/17/2026 Comprehensive Metabolic Panel Lab Routine Annual physical exam Expected: 12/18/2024 (Approximate), Expires: 12/18/2025 Lipid Panel, Standard Lab Routine Annual physical exam Expected: 12/18/2024 (Approximate), Expires: 12/18/2025 Chlamydia/N. Gonorrhoeae RNA, TMA, Urogenitial Microbiology Routine Class 1 obesity due to excess calories without serious comorbidity with body mass index (BMI) of 30.0 to 30.9 in adult Ordered: 12/18/2024 HIV-1/2 Antigen and Antibodies, Fourth Generation, with Reflexes Lab Routine Annual physical exam Expected: 12/18/2024 (Approximate), Expires: 12/18/2025 Hepatitis C Antibody with Reflex to HCV, RNA, Quantitative, Real-Time PCR Lab Routine Annual physical exam Expected: 12/18/2024, Expires: 12/18/2025 RPR (Monitor) with Reflex to??Titer Lab Routine Annual physical exam Expected: 12/18/2024, Expires: 12/18/2025 Urinalysis w/reflex microscopic Lab Routine Annual physical exam Expected: 12/18/2024, Expires: 12/18/2025 Trichomonas vaginalis RNA, Qualitative, TMA, Males Lab Routine Annual physical exam Expected: 12/18/2024, Expires: 12/18/2025 TSH W/Reflex to FT4 Lab Routine Annual physical exam Expected: 12/18/2024 (Approximate), Expires: 12/18/2025 Syphilis Screen Lab Routine Annual physical exam Expected: 12/18/2024, Expires: 12/18/2025 Comprehensive Metabolic Panel Lab Routine Annual physical exam Expected: 12/18/2024 (Approximate), Expires: 12/18/2025 CBC auto differential Lab Routine Annual physical exam Expected: 12/18/2024 (Approximate), Expires: 12/18/2025 documented as of this encounter Procedures Procedure Name Priority Date/Time Associated Diagnosis Comments CBC WITH AUTO DIFFERENTIAL Routine 12/18/2024 3:46 PM EDT Annual physical exam documented in this encounter Results * (ABNORMAL) CBC auto differential (12/18/2024 3:46 PM EDT) White Blood Count 7.2 4.8 - 10.8 X10*3/uL [facility] Red Blood Count 4.11(L) 4.20 - 5.50 X10*6/uL [facility] Hemoglobin 9.7(L) 12.0 - 16.0 g/dl [facility] Hematocrit 31.0(L) 37.0 - 47.0 % [facility] Mean Corpuscular Volume 75.4(L) 80.0 - 98.0 fL [facility] Mean Corpuscular Hemoglobin 23.6(L) 27.0 - 33.0 pg [facility] Mean Corpuscular HGB Conc 31.3 31.0 - 35.0 g/dl [facility] Red Cell Distribution Width 17.2(H) 11.0 - 16.0 % [facility] Platelet Count 249 160 - 400 X10*3/uL [facility] Mean Platelet Volume 12.8(H) 9.4 - 12.3 fL [facility] Neutrophils Percent Auto 61.1 45 - 73 % [facility] Imm Gran Pct Auto 0.4 0.0 - 0.4 % [facility] Lymphocytes Percent Auto 28.2 20 - 40 % [facility] Monocytes Percent Auto 8.5 2 - 11 % [facility] Eosinophils Percent Auto 1.4 0 - 4 % [facility] Basophils Percent Auto 0.4 0 - 2 % [facility] NRBC Pct Auto 0.0 0.0 - 0.2 /100WBC [facility] Neutrophils Absolute Auto 4.4 2.0 - 8.3 x10*3/uL [facility] Imm Gran Abs Auto 0.03 0.00 - 0.03 X10*3/uL [facility] Lymphocytes Absolute Auto 2.0 1.2 - 4.9 X10*3/uL [facility] Monocytes Absolute Auto 0.6 0.1 - 1.2 X10*3/uL [facility] Eosinophils Absolute Auto 0.1 0.0 - 0.4 X10*3/uL [facility] Basophils Absolute Auto 0.0 0.0 - 0.2 X10*3/uL [facility] NRBC Abs Auto 0.000 0.0 - 0.012 X10*3/uL [facility] Blood Venous blood specimen / Unknown 12/18/2024 3:46 PM EDT 12/18/2024 6:30 PM EDT Daren Villanueva MD LAB BLOOD ORDERABLES Final Result [facility] [address] [place] [address] [phone] documented in this encounter Visit Diagnoses Diagnosis Annual physical exam- Primary Routine general medical examination at a health care facility Mild intermittent asthma without complication Dietary counseling Dietary surveillance and counseling Exercise counseling Class 1 obesity due to excess calories without serious comorbidity with body mass index (BMI) of 30.0 to 30.9 in adult Encounter for screening mammogram for malignant neoplasm of breast documented in this encounter Additional Health Concerns Assessment Noted Time PHQ-9 Depression Total Score: 0 12/12/19 24 2:36 PM EST documented as of this encounter Care Teams Readiness Paraprofessional Relationship Specialty Start Date End Date Daren Villanueva MD [address] [place] [id number] PCP - General Internal Medicine 08/30/11 documented as of this encounter
[2024-12-18 19:13] LABS: Alanine Aminotransferase 24 U/L (0-31); Alkaline Phosphatase 77 U/L (39-117); Anion Gap 10 (12-20); Aspartate Amino Transferase 28 U/L (5-31); Bilirubin Total 0.2 mg/dL (0.0-1.0); Blood Urea Nitrogen 12 mg/dL (9-16); Carbon Dioxide 24 mmol/L (22-29); Chloride 111 mmol/L (96-108); Cholesterol 149 mg/dL (<200); Estimated Glomerular Filt Rate > 60; Glucose Random 92 mg/dL (60-115); HDL Cholesterol 54 mg/dL (>40); LDL Cholesterol Calculated 79 mg/dL (<100); Potassium 3.3 mmol/L (3.3-5.1); Sodium 142 mmol/L (135-145); Total Protein 7.1 g/dL (6.5-8.0); Triglycerides 81 mg/dL (<150)
[2024-12-18 19:29] LABS: TSH reflex Free T4 0.88 uIU/mL (0.32-4.0)
[2024-12-19 03:46] LABS: Syphilis Screen Nonreactive (Nonreactive)
[2024-12-19 04:09] LABS: HIV AB/AG Nonreactive (Nonreactive); HIV Num 1 0.08 S/CO (0.00-0.99); ~HepC Num1 0.13 S/CO (0.00-0.79); ~Hepatitis C Antibody Nonreactive (Nonreactive)
[2024-12-19 11:47] LABS: RPR Rapid Plasma Reagin NON-REACTIVE (NON-REACTIVE)
== END 2024-12-18 15:42 | disposition home or self-care (01) ==
LOC: HO.CHCLDS 15:41
PROVIDERS: Visit Provider Internal Medicine
DX: Z00.00 Encounter for general adult medical examination without abnormal findings (principal)
CPT/HCPCS: 36415; 80053; 80061; 81001; 84443; 85025; 86592; 86780; 86803; 87086; 87088; 87186; 87389

== ENCOUNTER 2025-01-30 11:00 | Outpatient (REF) | payer MEDICAID, SELFPAY ==
--- NOTE | ~2025-01-30 | US_ITS ---
EXAMINATION: US ABDOMEN LIMITED CLINICAL INFORMATION: Right upper quadrant abdominal pain. COMPARISON: None available. TECHNIQUE: Real-time imaging of the right upper quadrant abdominal viscera. FINDINGS: PANCREAS: Visualized portions are unremarkable. LIVER: The liver is normal in size. Right hepatic lobe measures 13.9 cm. The liver contour is normal. There is diffuse increased liver parenchymal echogenicity, consistent with hepatic steatosis. No focal hepatic lesion. There is no intrahepatic biliary duct dilatation seen. GALLBLADDER: Gallbladder demonstrates numerous intraluminal large calcified gallstones with shadowing. There is mild wall thickening of to 3 mm. There was a positive sonographic Turner's sign at the time of examination. COMMON BILE DUCT: Normal in caliber measuring 2 mm in diameter. RIGHT KIDNEY: No hydronephrosis. No renal calculi or focal parenchymal lesions. The kidney measures 10.3 cm in maximum dimension. FREE FLUID: None. US/US abdomen limited IMPRESSION: 1. Gallbladder is full of calcified gallstones, unchanged mild wall thickening up to 3 mm, with positive sonographic or CT sinus the time of examination. Acute cholecystitis is a consideration. 2. Mildly increased echogenicity of the liver, most likely applications sales representative of steatosis. No focal lesion. 3. No abnormal intra or extrahepatic biliary dilatation. Electronically signed by: Mickey Tavarez MD 01/30/2025 11:51 AM EDT
--- OUTSIDE RECORDS SUMMARY | 2025-01-30 13:18 | XMS_ITS | Clinical Summary ---
Author Organization [employer] Address [address] [place] [address] 7t [place] [address] Care Team Providers Care Specialty Development Consultant Name Role Phone Daren Villanueva MD Primary Care Provider [phone] Allergies Active Allergy Reactions Criticality Noted Date Comments Sewaren Meal (Obsolete) Itching,Shortness of breath,Swelling,Whee zing High 02/17/2007 Sewaren Oil 04/02/2024 Apple Fruit Extract Itching,Swelling 02/17/2005 [...] hours if needed for wheezing. 18 g 02/01/20 23 Active MV & Min w/FA-DHA ([facility] Gummy) 0.4-25 MG chewable tablet TAKE 1 TABLET BY MOUTH EVERY DAY FOR 90 DAYS *NOT COVERED* 12/02/19 23 Active metroNIDAZOLE (Metrogel) 0.75 % vaginal gel Metronidazole 0.75% gel twice weekly for > 3 months for recurrent vaginitis 70 g 5 04/03/20 24 Active azelastine (Astelin) 0.1 % nasal sprayIndications :Mild intermittent asthma without complication Administer 1 spray into each nostril 2 times daily. Use in each nostril as directed 30 mL 3 12/19/19 25 026 Active loratadine (Claritin) 10 MG tabletIndication s:Mild intermittent asthma without complication TAKE ONE TABLET DAILY 90 tablet 12/19/19 25 Active Tirzepatide-Weig ht Management (Zepbound) 2.5 MG/0.5ML solution auto-injectorInd ications:Mild intermittent asthma without complication,Cla ss 1 obesity due to excess calories without serious comorbidity with body mass index (BMI) of 30.0 to 30.9 in adult Inject 0.5 mL (2.5 mg) under the skin 1 (one) time per week. 2 mL 1 12/19/19 25 Active ferrous sulfate (Fe Tabs) 325 (65 Fe) MG EC tabletIndication s:Microcytic anemia Take 1 tablet (325 mg) by mouth with breakfast. Do not crush, chew, or split. 30 tablet 11 12/20/19 25 026 Active Mometasone Furoate (Asmanex, 120 Metered Doses,) 220 MCG/ACT aerosol powderIndication s:Mild intermittent asthma without complication Inhale 1 Act (220 mcg) Once per day. 1 each 3 01/19/20 25 Active celecoxib (CeleBREX) 200 MG capsuleIndicatio ns:Right upper quadrant abdominal pain Take 1 capsule (200 mg) by mouth 2 times daily. 60 capsule 01/19/20 25 025 Active ondansetron (Zofran) 4 MG tabletIndication s:Nausea Take 2 tablets (8 mg) by mouth every 8 (eight) hours if needed for nausea or vomiting for up to 7 days. 20 tablet 01/19/20 25 025 Active Problems Problem Noted Date Diagnosed Date Cervical cancer screening 04/03/2024 Class 2 obesity 04/02/2024 Gestational diabetes mellitus (GDM) 04/02/2024 Mild intermittent asthma without complication Encounters Date Type Department Care Team Description 01/18/2025 3:45 PM EDT Office Visit [facility] [address] [place] [address] Daren Villanueva MD Right upper quadrant abdominal pain (Primary Dx); Mild intermittent asthma without complication; Nausea 01/18/2025 Travel 01/14/2025 Telephone [facility] [address] [place] [address] Daren Villanueva MD ER Follow-up 12/21/2024 Population Health Risk Score [facility] ([facility] Department [address] [place] [phone] Provider, Population Health Generic 12/19/2024 Telephone [facility] [address] [place] [address] Daren Villanueva MD Results 12/19/2024 Orders Only [facility] [address] [place] [address] Daren Villanueva MD Microcytic anemia (Primary Dx); Urinary tract infection with hematuria, site unspecified 12/18/2024 2:45 PM EDT Office Visit [facility] [address] [place] [address] Daren Villanueva MD Annual physical exam (Primary Dx); Mild intermittent asthma without complication; Dietary counseling; Exercise counseling; Class 1 obesity due to excess calories without serious comorbidity with body mass index (BMI) of 30.0 to 30.9 in adult; Encounter for screening mammogram for malignant neoplasm of breast 12/18/2024 Orders Only [facility] [address] [place] [address] Daren Villanueva MD 12/18/2024 Travel 12/11/2024 Patient Outreach [facility] [address] [place] [address] Daren Villanueva MD Pre-visit Planning ([facility] unable to reach [facility] ) from Last 3 Months Immunizations Name [...] Sign Reading Time Taken Comments Blood Pressure 116/75 01/18/2025 3:50 PM EDT Pulse 86 01/18/2025 3:50 PM EDT Temperature 36.7 ??C (98 ??F) 01/18/2025 3:50 PM EDT Respiratory Rate 20 01/18/2025 3:50 PM EDT Oxygen Saturation 99% 01/18/2025 3:50 PM EDT Inhaled Oxygen Concentration - - Weight 90.7 kg (200 lb) 01/18/2025 3:50 PM EDT Height 168 cm (5' 6.14 ) 01/18/2025 3:50 PM EDT Body Mass Index 32.14 01/18/2025 3:50 PM EDT Plan of Treatment Health Maintenance Due Date Last Done Comments Family Planning (PISQ) 1999 Hepatitis B Vaccines (1 of 3 - 19+ 3-dose series) 2003 Pneumococcal Vaccine: Pediatrics (0 to 5 Years) and At-Risk Patients (6 to 49) Years) (1 of 2 - PCV) 2003 COVID-19 Vaccine (2023-2 5 season) 2024 09/29/2022, 08/23/2022 Influenza Vaccine (#1) 2024 , 08/02/2019, 07/10/2015 Mammogram 2024 Depression Screening 12/11/2024 12/12/2023, 12/12/2023 Alcohol/Substance Use Screening 12/18/2025 12/18/2024 SDOH Screening 12/18/2025 12/18/2024 Tobacco Screening 01/18/2026 01/18/2025 Cervical Cancer Screening 04/03/2027 HPV/Cotest 04/03/2027 08/15/2018 Pap Smear 04/03/2027 04/03/2024 Lipid Panel 12/18/2029 12/18/2024 DTaP/Tdap/Td Vaccines (3 - T d or Tdap) 12/11/2033 12/12/2023, 03/08/2013 Zoster Vaccines (1 of 2) 2034 RSV Patients and Patients Aged 60 years or older (1 - 1-dose 75+ series) 2059 HIV Screening Completed 12/18/2024, 12/12/2023 Hepatitis C Screening Completed 12/18/2024 , 12/12/2023 HIB Vaccines Aged Out No longer [...] this topic Meningococcal Vaccine Aged Out No jason marcellus eligible based on patient's age to complete this topic RSV under 20 months Aged Out No longe r eligible based on patient's age to complete this topic Rotavirus Vaccines Aged Out No longer eligible based on patient's age to complete this topic Procedures Procedure Name Priority Date/Time Associated Diagnosis Comments US ABDOMEN LIMITED Urgent 01/30/2025 11 :03 AM EDT URINALYSIS, COMPLETE, WITH REFLEX TO CULTURE Routine 12/18/2024 3:50 PM EDT COMPREHENSIVE METABOLIC PANEL Routine 12/18/2024 3:46 PM EDT Annual physical exam SYPHILIS SCREEN Routine 12/18/2024 3:46 PM EDT Annual physical exam TSH W/REFLEX TO FT4 Routine 12/18/2024 3 :46 PM EDT Annual physical exam RPR (MONITOR) W/REFL TITER Routine 12/18/2024 3:46 PM EDT Annual physical exam HEPATITIS C AB W/REFL TO HCV RNA, QN, PCR Routine 12/18/2024 3:46 PM EDT Annual physical exam HIV 1/2 ANTIGEN/ANTIBODY, FOURTH GENERATION W/RFL Routine 12/18/2024 3:46 PM EDT Annual physical exam LIPID PANEL, STANDARD Routine 12/18/2024 3:46 PM EDT Annual physical exam CBC WITH AUTO DIFFERENTIAL Routine 12/18/2024 3:46 PM EDT Annual physical exam CULTURE, URINE, ROUTINE Routine 12/18/2024 12:00 AM EDT THINPREP?? IMAGING PAP REFL HPV MRNA(IF ASCUS,ASC-H,LSIL) Routine 04/03/2024 12:00 AM EDT Acute cystitis with hematuria SHABANA HISTORICAL HPV MRNA E6/E7 Routine 08/15/2018 10:08 AM EST from Last 3 Months or Most Recently Relevant to Health Maintenance Results * US Abdomen Limited (01/30/2025 11:03 AM EDT) Anatomical Region Laterality Modality Abdomen Ultrasound 01/30/2025 11:0 3 AM EDT Narrative 01/30/2025 11:54 AM EDT ? [facility] ?[address] ? [place] [address] ? Ultrasound Report ? Signed ? Patient: Lakia Brewster ?MR#: [id number] ? : 1985 ?Acct:[id number] ? Age/Sex: 39 / F ?ADM Date: 01/30/25 ? Loc: HO.HMGCX ? Attending Dr: Daren Villanueva MD ? Ordering Physician: Daren Villanueva MD ?? Date of Service: 01/30/25 ?? Procedure(s): US abdomen limited ?? Accession Number(s): [id number] ? cc: Daren Villanueva MD ? EXAMINATION: ?? US ABDOMEN LIMITED ? CLINICAL INFORMATION: ?? Right upper quadrant abdominal pain. ? COMPARISON: ?? None available. ? TECHNIQUE: ?? Real-time imaging of the right upper quadrant abdominal viscera. ? FINDINGS: ? PANCREAS: Visualized portions are unremarkable. ? LIVER: The liver is normal in size. Right hepatic lobe measures 13.9 ?? cm. The liver contour is normal. There is diffuse increased liver ?? parenchymal echogenicity, consistent with hepatic steatosis. ??No focal ?? hepatic lesion. There is no intrahepatic biliary duct dilatation seen. ? GALLBLADDER: Gallbladder demonstrates numerous intraluminal large ?? calcified gallstones with shadowing. There is mild wall thickening of ?? to 3 mm. There was a positive sonographic Turner's sign at the time of ?? examination. ? COMMON BILE DUCT: Normal in caliber measuring 2 mm in diameter. ? RIGHT KIDNEY: No hydronephrosis. No renal calculi or focal parenchymal ?? lesions. The kidney measures 10.3 cm in maximum dimension. ? FREE FLUID: None. ? US/US abdomen limited ?? IMPRESSION: ? 1. Gallbladder is full of calcified gallstones, unchanged mild wall ?? thickening up to 3 mm, with positive sonographic or CT sinus the time ?? of examination. Acute cholecystitis is a consideration. ?? 2. Mildly increased echogenicity of the liver, most likely ?? pharmacy services representative of steatosis. No focal lesion. ?? 3. No abnormal intra or extrahepatic biliary dilatation. ? Electronically signed by: ??Mickey Tavarez MD ??01/30/2025 11:51 AM EDT RP ? Dictated By: ?Mickey Tavarez MD ? Signed By: ?<Electronically signed by Mickey Tavarez MD in OV> ?01/30/25 1151 ? DD/ 1103 ? TD/TT: 01/30/25 1121 ? Forensic Technician: ? Procedure Note Get[place]w, Image - 01/30/2025 [facility] [address] [place] [address] [place] [address] Ultrasound Report Signed Patient: Susan Brewster#: [id number] : 1985Acct:[id number] Age/Sex: 39 / FADM Date: 01/30/25 [facility]: Daren Villanueva MD Ordering Physician: Daren Villanueva MD Date of Service: 01/30/25 Procedure(s): US abdomen limited Accession Number(s): [id number] cc: Daren Villanueva MD EXAMINATION: US ABDOMEN LIMITED CLINICAL INFORMATION: Right upper quadrant abdominal pain. COMPARISON: None available. TECHNIQUE: Real-time imaging of the right upper quadrant abdominal viscera. FINDINGS: PANCREAS: Visualized portions are unremarkable. LIVER: The liver is normal in size. Right hepatic lobe measures 13.9 cm. The liver contour is normal. There is diffuse increased liver parenchymal echogenicity, consistent with hepatic steatosis. No focal hepatic lesion. There is no intrahepatic biliary duct dilatation seen. GALLBLADDER: Gallbladder demonstrates numerous intraluminal large calcified gallstones with shadowing. There is mild wall thickening of to 3 mm. There was a positive sonographic Turner's sign at the time of examination. COMMON BILE DUCT: Normal in caliber measuring 2 mm in diameter. RIGHT KIDNEY: No hydronephrosis. No renal calculi or focal parenchymal lesions. The kidney measures 10.3 cm in maximum dimension. FREE FLUID: None. US/US abdomen limited IMPRESSION: 1. Gallbladder is full of calcified gallstones, unchanged mild wall thickening up to 3 mm, with positive sonographic or CT sinus the time of examination. Acute cholecystitis is a consideration. 2. Mildly increased echogenicity of the liver, most likely pharmacy services representative of steatosis. No focal lesion. 3. No abnormal intra or extrahepatic biliary dilatation. Electronically signed by: Mickey Tavarez MD 01/30/2025 11:51 AM EDT Dictated By: Mickey Tavarez MD Signed By: <Electronically signed by Mickey Tavarez MD in OV> 01/30/25 1151 DD/ 1103 TD/TT: 01/30/25 1121 Forensic Technician: us Daren Villanueva MD IM US PROCEDURES Final Res ult * (ABNORMAL) Urinalysis, Complete, with Reflex to Culture (12/18/2024 3:50 PM EDT) Color Urine Yellow [facility] Appearance Urine Cloudy [facility] PH 6.5 5.0 - 9.0 [facility] Glucose Urine UA Negative Negative mg/dL [facility] Urine Blood Large (3+)(A) Negative [facility] Specific Bone Gap - Urine 1.025 1.005 - 1.025 [facility] Urine Protein Negative Neg-Trace mg/dL [facility] Urine Ketones Negative Negative mg/dL [facility] Nitrite Urine Negative Negative [facility] Leukocyte Esterase Urine Trace(A) Negative [facility] RBC Urine >20(A) 0 - 2 /HPF [facility] Urine WBC 11-20(A) 0 - 5 /HPF [facility] Urine Squamous Epithelial Cell 6-10 0 - 2 /HPF [facility] Urine Bacteria 4+ None Seen [facility] Hyaline Casts, Urine 0-2 0 - 2 /LPF [facility] 12/18/2024 3:50 PM EDT 12/18/2024 6:18 PM EDT Narrative [facility] - 12/18/2024 6:49 PM EDT [id number], Clean Catch us Daren Villanueva MD LAB URINE ORDERABLES Final Result Performing Organization Address [facility]/ZIP Co de Phone Number [facility] [address] [place] [phone] * Syphilis Screen (12/18/2024 3:46 PM EDT) Syphilis Screen Nonreactive Nonreactive [facility] Blood 12/18/2024 3:46 PM EDT 12/18/2024 6:30 PM EDT us Daren Villanueva MD LAB BLOOD ORDERABLES Final Result Performing Organization Address [facility] Co de Phone Number [facility] [address] [place] [phone] * TSH W/Reflex to FT4 (12/18/2024 3:46 PM EDT) TSH reflex Free T4 0.88 0.32 - 4.0 uIU/mL [facility] Blood Venous blood specimen / Unknown 12/18/2024 3:46 PM EDT 12/18/2024 6:30 PM EDT us Daren Villanueva MD LAB BLOOD ORDERABLES Final Result Performing Organization Address [facility]/ZIP Co de Phone Number [facility] [address] [place] [phone] * (ABNORMAL) CBC auto differential (12/18/2024 3:46 PM EDT) White Blood Count 7.2 4.8 - 10.8 X10*3/uL [facility] Red Blood Count 4.11(L) 4.20 - 5.50 X10*6/uL [facility] Hemoglobin 9.7(L) 12.0 - 16.0 g/dl [facility] Hematocrit 31.0(L) 37.0 - 47.0 % [facility] Mean Corpuscular Volume 75.4(L) 80.0 - 98.0 fL [facility] Mean Corpuscular Hemoglobin 23.6(L) 27.0 - 33.0 pg [facility] Mean Corpuscular HGB Conc 31.3 31.0 - 35.0 g/dl [facility] Red Cell Distribution Width 17.2(H) 11.0 - 16.0 % [facility] Platelet Count 249 160 - 400 X10*3/uL [facility] Mean Platelet Volume 12.8(H) 9.4 - 12.3 fL [facility] Neutrophils Percent Auto 61.1 45 - 73 % [facility] Imm Gran Pct Auto 0.4 0.0 - 0.4 % [facility] Lymphocytes Percent Auto 28.2 20 - 40 % [facility] Monocytes Percent Auto 8.5 2 - 11 % [facility] Eosinophils Percent Auto 1.4 0 - 4 % [facility] Basophils Percent Auto 0.4 0 - 2 % [facility] NRBC Pct Auto 0.0 0.0 - 0.2 /100WBC [facility] Neutrophils Absolute Auto 4.4 2.0 - 8.3 x10*3/uL [facility] Imm Gran Abs Auto 0.03 0.00 - 0.03 X10*3/uL [facility] Lymphocytes Absolute Auto 2.0 1.2 - 4.9 X10*3/uL [facility] Monocytes Absolute Auto 0.6 0.1 - 1.2 X10*3/uL [facility] Eosinophils Absolute Auto 0.1 0.0 - 0.4 X10*3/uL [facility] Basophils Absolute Auto 0.0 0.0 - 0.2 X10*3/uL [facility] NRBC Abs Auto 0.000 0.0 - 0.012 X10*3/uL [facility] Blood Venous blood specimen / Unknown 12/18/2024 3:46 PM EDT 12/18/2024 6:30 PM EDT Daren Villanueva MD LAB BLOOD ORDERABLES Final Result Performing Organization Address City/[facility]/ZIP Co de Phone Number [facility] [address] [place] [phone] * Hepatitis C Antibody with Reflex to HCV, RNA, Quantitative, Real-Time PCR (12/18/2024 3:46 PM EDT) Hepatitis C Antibody Nonreactive Nonreactive [facility] Comment:Antibodies to HCV no t detected; does not exclude early acuteHCV infection. Blood Venous blood specimen / Unknown 12/18/2024 3:46 PM EDT 12/18/2024 6:30 PM EDT us Daren Villanueva MD LAB BLOOD ORDERABLES Final Result Performing Organization Address City/[facility]/ZIP Co de Phone Number [facility] [address] [place] [phone] * RPR (Monitor) with Reflex to??Titer (12/18/2024 3:46 PM EDT) RPR (Monitor) w/Refl Titer NON-REACTI VE NON-REACT IVAN [facility] Comment:THIS TEST WAS PERFOR MED AT:[facility] [place] [phone] PICKETT MD Rapid Plasma Reagin Ab Titer TNP [facility] Blood Venous blood specimen / Unknown 12/18/2024 3:46 PM EDT 12/18/2024 6:30 PM EDT us Daren Villanueva MD LAB BLOOD ORDERABLES Final Result Performing Organization Address City/[facility]/ZIP Co de Phone Number [facility] [address] [place] [phone] * HIV-1/2 Antigen and Antibodies, Fourth Generation, with Reflexes (12/18/2024 3:46 PM EDT) HIV AB/AG Nonreactive Nonreactive [facility] Comment:HIV-1 p24 Ag and/or HIV-1/HIV-2 Ab not detected.A test result that is nonreactive does not exclude thepossibility of exposure to or infection with HIV-1 and/orHIV-2. Nonreactive results in this assay for individualswith prior exposure to HIV-1 and/or HIV-2 may be due toantigen and antibody levels that are below the limit ofdetection of this assay.The [employer] HIV Ag/Ab Combo assay result andsupplemental assay results should be interpreted inconjunction with the patient's clinical presentation,history and other laboratory results. If the results areinconsistent with clinical evidence, additional testing issuggested to confirm the result. Blood Venous blood specimen / Unknown 12/18/2024 3:46 PM EDT 12/18/2024 6:30 PM EDT us Daren Villanueva MD LAB BLOOD ORDERABLES Final Result Performing Organization Address City/[facility]/ZIP Co de Phone Number [facility] [address] [place] [phone] * Lipid Panel, Standard (12/18/2024 3:46 PM EDT) Triglycerides 81 <150 mg/dL [facility] Comment:Desirable Triglyceri de: less than 150 mg/dLBorderline High Triglyceride 150-199 mg/dLHigh Triglyceride: 200-499 mg/dLVery High Triglyceride: greater than or equal to 5OO mg/dL Cholesterol 149 <200 mg/dL [facility] Comment:Desirable Cholestero l: less than 200 mg/dLBorderline High Cholesterol: 200-239 mg/dLHigh Cholesterol: greater than 239 mg/dL LDL Cholesterol Calculated 79 <100 mg/dL [facility] Comment:Desirable LDL: less than 100 mg/dLNear Optimal/Above Optimal LDL: 110- 129 mg/dLBorderline High LDL: 130-159 mg/dLHigh LDL: 160-189 mg/dLVery High LDL: greater than or equal to 190 mg/dL HDL Cholesterol 54 >40 mg/dL [facility] Comment:Desirable HDL: great er than 40 mg/dL Note: This HDL assay may give artificially low results in patients with liver disease. Blood Venous blood specimen / Unknown 12/18/2024 3:46 PM EDT 12/18/2024 6:30 PM EDT Daren Villanueva MD LAB BLOOD ORDERABLES Final Result [facility] [address] [place] [phone] * (ABNORMAL) Comprehensive Metabolic Panel (12/18/2024 3:46 PM EDT) Sodium 142 135 - 145 mmol/L [facility] Potassium 3.3 3.3 - 5.1 mmol/L [facility] Chloride 111(H) 96 - 108 mmol/L [facility] Carbon Dioxide 24 22 - 29 mmol/L [facility] Anion Gap 10(L) 12 - 20 [facility] Urea Nitrogen (BUN) 12 9 - 16 mg/dL [facility] Creatinine, Serum 0.66 0.5 - 1.4 mg/dL [facility] Estimated Glomerular Filt Rate >60 [facility] Comment:Chronic Kidney Disea se: Estimated GFR < 60 mL/min/1.32i3Doiura Kidney Disease: Estimated GFR < 15 mL/min/1.73m2 Glucose 92 60 - 115 mg/dL [facility] Calcium 9.0 8.4 - 10.2 mg/dL [facility] Bilirubin, Total 0.2 0.0 - 1.0 mg/dL [facility] Aspartate Amino Transferase 28 5 - 31 U/L [facility] Alanine Aminotransferase 24 0 - 31 U/L [facility] Total Protein 7.1 6.5 - 8.0 g/dL [facility] Albumin Level 4.0 3.5 - 5.0 g/dL [facility] Alkaline Phosphatase 77 39 - 117 U/L [facility] Blood Venous blood specimen / Unknown 12/18/2024 3:46 PM EDT 12/18/2024 6:30 PM EDT Daren Villanueva MD LAB BLOOD ORDERABLES Final Result Performing Organization Address [facility] de Phone Number [facility] [address] [place] [phone] * Culture, Urine, Routine (12/18/2024 12:00 AM EDT) Urine Urine specimen obtained by clean catch procedure / Unknown 12/18/2024 12/18/2024 Comment:[facility] Narrative [facility] - 12/20/2024 7:43 AM EDT Klebsiella aerogenes Quant > 100,000 cfu/mL Klebsiella aerogenes: Ampicillin 16(R) Klebsiella aerogenes: Cefazolin >=32(R) Klebsiella aerogenes: Cefepime <=0.12(S) Klebsiella aerogenes: Ceftriaxone <=0.25(S) Klebsiella aerogenes: Ciprofloxacin <=0.06(S) Klebsiella aerogenes: Gentamicin <=1(S) Klebsiella aerogenes: Nitrofurantoin 128(R) Klebsiella aerogenes: Trimethoprim/Sulfamethoxazole <=20(S) Specimen Source: Urine clean catch Daren Villanueva MD LAB MICROBIOLOGY - GENERAL ORDERABLES Final Result Performing Organization Address [facility] Co de Phone Number [facility] [address] [place] [phone] * ThinPrep?? Imaging Pap Refl HPV mRNA(if ASCUS,ASC-H,LSIL,HSIL,MAICO)Refl Genotype (04/03/2024 12:00 AM EDT) HPV nRNA E6/E7 [facility] HPV 16,18/45 [facility] SOURCE: SEE NOTE [facility] Comment:None given Report Status: [facility] Clinical Information: SEE NOTE [facility] Comment:None given LMP: SEE NOTE [facility] Comment:NONE GIVEN Prev. PAP: SEE NOTE [facility] Comment:NONE GIVEN Prev. BX: SEE NOTE [facility] Comment:NONE GIVEN Statement Of Adequacy: SEE NOTE [facility] Comment:Satisfactory for marquita luation.Endocervical/transformation zone componentpresent. General Categorization: [facility] Interpretation/Result: SEE NOTE [facility] Comment:Cytology Results: Ne gative for intraepitheliallesion or malignancy. Cytology Comment SEE NOTE [facility] Comment:This Pap test has be en evaluated with computerassisted technology. Button Spindler: SEE NOTE [facility] Comment:SXA, CT(ASCP)CT scre ening location: [address] [address] Review Button Spindler: [facility] Pathologist [facility] PAP Infection [facility] See Note SEE [facility] Comment:EXPLANATORY NOTE:The Pap is a screening test for cervical cancer. It isnot a diagnostic test and is subject to false negativeand false positive results. It is most reliable when asatisfactory sample, regularly obtained, is submittedwith relevant clinical findings and history, and whenthe Pap result is evaluated along with historic andcurrent clinical information.THIS TEST WAS PERFORMED AT:[facility] [address] [phone] PICKETT MD 04/03/2024 04/03/2024 us Diann Pineda MD LAB CYTOLOGY ORDERABLES Final Result [facility] [facility] [address] [place] [address] [phone] * HPV mRNA E6/E7 (08/15/2018 10:08 AM EST) HPV mRNA E6/E7 Not Detected NOT DETECTED [facility] Comment: This test was performed using the APTIMA(R) HPV Assay ([employer] This assay detects E6/E7 viral messenger RNA (mRNA) from 14 high-risk HPV types (16,18,31,33,35,39,45,51, 52,56,58,59,66,68). For additional information please refer to: http://education.[employer]/faq/ZHD193s2 (This link is being provided for informational/ educational purposes only.) The analytical performance characteristics of this assay have been determined by [facility] [place], [place]. The modifications have not been cleared or approved by the FDA. This assay has been validated pursuant to the CLIA regulations and is used for clinical purposes. Test Performed by [facility], [facility], [address] [place] [address] Rickie Cobian M.D., Ph.D., Director of Laboratories , CLIA [id number] Please note: ??Effective 06/21/2016, HPV testing will be performed using [employer]'s APTIMA test which targets mRNA. Detecting mRNA instead of DNA, as in older methods, offers significant improvements in specificity. 08/15/2018 10:0 8 AM EST us Nia Reyes CNM HISTORICAL/NON ORDERABLE LABS Final Result [facility] [address] from Last 3 Months or Most Recently Relevant to Health Maintenance Insurance [facility] C3 Care Teams Specialty Development Consultant Relationship Specialty Start Date End Date Daren Villanueva MD [address] [place] [address] ANALILIA Matias [id number] PCP - General Internal Medicine 08/30/11
--- OUTSIDE RECORDS SUMMARY | 2025-01-30 13:18 | XMS_ITS | Encounter Summary ---
Author Organization [employer] Address [address] [facility] 7 [place] [address] Care Team Providers Care Agricultural Inspector Name Role Phone Daren Villanueva MD Primary Care Provider [phone] Encounter Details Date Type Department Care Team (Late st Contact Info) Description 12/19/2024 Orders Only [facility] [address] [place] [address] Daren Villanueva MD [address] [facility] [place] [id number] Microcytic anemia (Primary Dx); Urinary tract infection with hematuria, site unspecified Social History Tobacco Use Types Packs/Day Years [...] your housing situation today? I have kay sing 12/18/[address] you li [...] as of this encounter Plan of Treatment Scheduled Orders Name Type Priority Associated Diagnoses Orde r Schedule CBC auto differential Lab Routine Microcytic anemia Expected: 12/19/2024 (Approximate), Expires: 12/19/2025 documented as of this encounter Visit Diagnoses Diagnosis Microcytic anemia- Primary Unspecified iron deficiency anemia Urinary tract infection with hematuria, site unspecified documented in this encounter Additional Health Concerns Assessment Noted Time PHQ-9 Depression Total Score: 0 12/12/19 24 2:36 PM EST documented as of this encounter Care Teams Agricultural Inspector Relationship Specialty Start Date End Date Daren Villanueva MD [address] [place] [id number] PCP - General Internal Medicine 08/30/11 documented as of this encounter
--- OUTSIDE RECORDS SUMMARY | 2025-01-30 13:18 | XMS_ITS | Clinical Summary ---
Author Organization [employer] [facility] it Address [address] [place] [address] Care Team Providers Care Shoer Name Role Phone Unavailable Primary Care Provider [...] Vaccine (2023-2 5 season) 2024 Influenza Vaccine (Season Ended) 2025 HIB Vaccines Aged Out No longer eligi [...] age to complete this topic Meningococcal B Vaccine Aged Out No l onger eligible based on patient's age to complete [...]
--- OUTSIDE RECORDS SUMMARY | 2025-01-30 13:18 | XMS_ITS | Encounter Summary ---
Author Organization [employer] Address [address] [place] [address] [address] [place] [address] Care Team Providers Care Tick Sewer Name Role Phone Daren Villanueva MD Primary Care Provider Encounter Details Date Type Department Care Team ([facility] st Contact Info) Description 04/18/2023 Telephone [facility] [address] [facility] [place] [address] Daren Villanueva MD [address] [place] [address] Social History Tobacco Use Types Packs/Day Years [...] on filedocumented in this encounter Care Teams Tick Sewer Relationship Specialty Start Date End Date Daren Villanueva MD [address] [place] [address] PCP - General Internal Medicine 08/30/11 documented as of this encounter
== END 2025-01-30 11:01 | disposition home or self-care (01) ==
LOC: HO.HMGCX 11:00
PROVIDERS: PCP Internal Medicine; Visit Provider Internal Medicine
DX: R10.11 Right upper quadrant pain (principal)
CPT/HCPCS: 76705

== ENCOUNTER → 2025-01-30 11:03 | Outpatient (BNV) | payer MEDICAID, SELFPAY | PROVIDERS: PCP Internal Medicine; Visit Provider Radiology Diagnostic Radiology | DX: R10.11 Right upper quadrant pain (principal) | CPT/HCPCS: 76705 ==

== ENCOUNTER 2025-02-05 14:58 | Outpatient (REF) | payer MEDICAID, SELFPAY | END 2025-02-05 14:59 | disposition home or self-care (01) | LOC: HO.MAMMO 14:58 | PROVIDERS: PCP Internal Medicine; Visit Provider Internal Medicine | DX: Z12.31 Encounter for screening mammogram for malignant neoplasm of breast (principal) | CPT/HCPCS: 77063; 77067 ==

== ENCOUNTER → 2025-02-05 15:00 | Outpatient (BNV) | payer MEDICAID, SELFPAY | PROVIDERS: PCP Internal Medicine; Visit Provider Internal Medicine | DX: Z12.31 Encounter for screening mammogram for malignant neoplasm of breast (principal) | CPT/HCPCS: 77063; 77067 ==

== ENCOUNTER 2025-02-20 11:28 | Outpatient (AMB) | payer MEDICAID, SELFPAY ==
--- NOTE | 2025-02-20 11:30 | MHC.OFFVIS ---
Vital Signs 02/20/25 11:33 Height 5 ft 6 in Weight 203 lb BMI 32.8 BP 135/78 Blood Pressure Location Rt brachial Position Sitting Pulse 80 Intake Visit Reasons: calculus of gallbladder Intake Note: Patient referred by pcp Dr. Villanueva for Calculus of Gallbladder. Patient c/o: abdominal pain. Denies nausea. Reports just one bad episode with severe pain. Abd US: -01-30-2025 Road Freight Firer Required: No Accompanied by: Self / Same As Patient Allergies No Known Allergies Allergy (Verified 02/20/25 11:38) HPI HPI calculus of gallbladder: Details: [age] year old female referred for gallstones. She went to [facility] last January, because of a cough and epigastric pain. She had an ultrasound done which showed multiple gallstones. She says she does have periodic epigastric pain. She denies any nausea or vomiting. She says that the pain happens randomly. She says she is healthy overall. [facility] Medical History (Updated 02/20/25 @ 11:41 by FABI Addison) delivery delivered Seasonal allergies Gallstones Family History (Updated 02/20/25 @ 11:43 by FABI Addison) Father Prostate CA Maternal Grandmother Breast CA Maternal Grandfather Colon cancer Social History (Updated 02/20/25 @ 11:44 by FABI Addison) Alcohol intake: current Alcohol intake frequency: holidays/special occasions only Patient Tobacco Use Status: Never used Tobacco Review of Systems Const Denies chills and Denies fever(s) Card Denies chest pain, Denies dyspnea and Denies dyspnea on exertion Resp Denies cough, Denies dyspnea and Denies dyspnea on exertion GI Denies hematochezia and Denies change in bowel habits Denies hematuria Musc Denies back pain and Denies limited range of motion Neuro Denies focal weakness and Denies convulsions Psych Denies depression and Denies mood swings Physical Exam Vital Signs: Last Vital Signs Pulse 80 02/20/25 11:33 BP 135/78 02/20/25 11:33 BMI result Body Mass Index 32.8 Const General: comfortable and no acute distress Orientation/consciousness: patient oriented x3 Neck Neck: Yes no lymphadenopathy Resp Auscultation: clear to auscultation bilaterally Cardio Rhythm: regular rhythm GI Palpation (GI): Soft to palpation, nontender and no guarding Neuro General: patient oriented x3 Assessment & Plan Assessment & Plan (1) Gallstones: Code(s): K80.20 - Calculus of gallbladder without cholecystitis without obstruction Category: Medical Plan: She states that she has periodic epigastric pain that seems to also extend to the right side. She does have gallstones on ultrasound. Her pain may be secondary to gallbladder disease. I explained to her the technique of laparoscopic cholecystectomy and possible open cholecystectomy. I reviewed the risks including but not limited to bleeding, infections, injury to other organs including bowel, liver and the bile ducts, bile leak, retained stones, as well as the benefits and alternatives. I reviewed with her what to expect postoperatively. She also understands that there is no guarantee that her pain we will completely resolve with cholecystectomy. Coding Level of Care Code New Pt Level 3 (25192) Diagnoses Gallstones K80.20
[2025-02-20 11:33] VITALS: BP 135/78; PULSE 80; BMI 32.8
--- OUTSIDE RECORDS SUMMARY | 2025-02-20 12:26 | XMS_ITS | Clinical Summary ---
Author Organization [employer] Address [address] [place] [address] [address] [place] [address] Care Team Providers Care Rotary Furnace Tender Name Role Phone Daren Villanueva MD Primary Care Provider [phone] Allergies Active Allergy Reactions Criticality Noted Date Comments Tarkio Meal (Obsolete) Itching,Shortness of breath,Swelling,Whee zing High 02/17/2007 Tarkio Oil 04/02/2024 Apple Fruit Extract Itching,Swelling 02/17/2005 [...] complication TAKE ONE TABLET DAILY 90 tablet Active Tirzepatide-Javi ght Management (Zepbound) 2.5 MG/0.5ML solution auto-injectorIn dications:Mild intermittent asthma without complication,Cl ass 1 obesity due to excess calories without serious comorbidity with body mass index (BMI) of 30.0 to 30.9 in adult Inject 0.5 mL (2.5 mg) under the skin 1 (one) time per week. 2 mL 1 Active ferrous sulfate (Fe Tabs) 325 (65 Fe) MG EC tabletIndicatio ns:Microcytic anemia Take 1 tablet (325 mg) by mouth with breakfast. Do not crush, chew, or split. 30 tablet 11 025 2025 Active Mometasone Furoate (Asmanex, 120 Metered Doses,) 220 MCG/ACT aerosol powderIndicatio ns:Mild intermittent asthma without complication Inhale 1 Act (220 mcg) Once per day. 1 each 3 Active celecoxib (CeleBREX) 200 MG capsuleIndicati ons:Right upper quadrant abdominal pain TAKE 1 CAPSULE BY MOUTH 2 TIMES DAILY. 60 capsule 025 Active celecoxib (CeleBREX) 200 MG capsuleIndicati ons:Right upper quadrant abdominal pain Take 1 capsule (200 mg) by mouth 2 times daily. 60 capsule 025 2024 Discontinued ondansetron (Zofran) 4 MG tabletIndicatio ns:Nausea Take 2 tablets (8 mg) by mouth every 8 (eight) hours if needed for nausea or vomiting for up to 7 days. 20 tablet 025 2024 Active Problems Problem Noted Date Diagnosed Date Cervical cancer screening 04/03/2024 Class 2 obesity 04/02/2024 Gestational diabetes mellitus (GDM) 04/02/2024 Mild intermittent asthma without complication Encounters Date Type Department Care Team Description 02/14/2025 Refill [facility] [address] [facility] [place] [address] Daren Villanueva MD Right upper quadrant abdominal pain 02/01/2025 Orders Only [facility] [address] [place] [address] Daren Villanueva MD Calculus of gallbladder with acute cholecystitis without obstruction (Primary Dx) 01/18/2025 3:45 PM EDT Office Visit [facility] [address] [place] [address] Daren Villanueva MD Right upper quadrant abdominal pain (Primary Dx); Mild intermittent asthma without complication; Nausea 01/18/2025 Travel 01/14/2025 Telephone [facility] [address] [place] [address] Daren Villanueva MD ER Follow-up 12/21/2024 Population Health Risk Score Community [facility] () Department [address] [phone] Provider, Population Health Generic 12/19/2024 Telephone [facility] [address] [place] [address] Daren Villanueva MD Results 12/19/2024 Orders Only [facility] [address] [place] [address] Daren Villanueva MD Microcytic anemia (Primary Dx); Urinary tract infection with hematuria, site unspecified 12/18/2024 2:45 PM EDT Office Visit [facility] [address] [place] [address] Daren Villanueva MD Annual physical exam (Primary Dx); Mild intermittent asthma without complication; Dietary counseling; Exercise counseling; Class 1 obesity due to excess calories without serious comorbidity with body mass index (BMI) of 30.0 to 30.9 in adult; Encounter for screening mammogram for malignant neoplasm of breast 12/18/2024 Orders Only [facility] [address] [place] [address] Daren Villanueva MD 12/18/2024 Travel 12/11/2024 Patient Outreach [facility] [address] [facility] [place] [address] Daren Villanueva MD Pre-visit Planning ([facility] unable to reach [facility] ) from Last 3 Months Immunizations Immunization Administration Dates Next Due Influenza Injectable Quadriv [...] is your housing situation today? I have kaylisa jon 12/18/[address] you [...] Influenza Vaccine (#1) 2024 , 08/02/2019, 07/10/2015 Depression Screening 12/11/2024 12/12/2023, 12/12/2023 Alcohol/Substance Use Screening 12/18/2025 12/18/2024 SDOH Screening 12/18/2025 12/18/2024 Tobacco Screening 01/18/2026 01/18/2025 Mammogram 02/05/2027 02/05/2025 Cervical Cancer Screening 04/03/2027 HPV/Cotest 04/03/2027 08/15/2018 [...] Procedure Name Priority Date/Time Associated Diagnosis Comments BI MAMMOGRAM SCREENING TOMOSYNTHESIS BILATERAL Routine 02/05/2025 3:05 PM EDT Encounter for screening mammogram for malignant neoplasm of breast US ABDOMEN LIMITED Urgent 01/30/2025 11 :03 [...] Recently Relevant to Health Maintenance Results * BI Mammogram Screening Tomosynthesis Bilateral (02/05/2025 3:05 PM EDT) Anatomical Region Laterality Modality Breast Bilateral Mammography 02/05/2025 3:05 PM EDT Narrative 02/11/2025 4:46 PM EDT ? [facility] [place] ? [address] ?[place] [address] ?[phone] ? Mammography Report ? Signed ? Patient: Narcisa,Lakia ?MR#: [id number] ? : 1985 ?Acct:[id number] ? Age/Sex: 39 / F ?ADM Date: 04/29/25 ? Loc: HO.MAMMO ? Attending Dr: Daren Villanueva MD ? Ordering Physician: Daren Villanueva MD ?Results: 1 ?? Negative ? Date of Service: 02/05/25 ?Follow Up: 1 Year From Orig ?? inal Mammogram ? Procedure(s): MM tomosynthesis screening BI ?? Accession Number(s): [id number] ? cc: Daren Villanueva MD ? EXAMINATION: ?? MM SCREENING DIGITAL BREAST TOMOSYNTHESIS, BILATERAL ? CLINICAL INFORMATION: ? Screening. Asymptomatic. ? COMPARISON: ?? Mammography: Baseline. ? TECHNIQUE: ?? Digital breast mammography with tomosynthesis is performed in both the ?? craniocaudal and mediolateral oblique views along with computer-aided ?? detection (CAD). ? FINDINGS: ?? The breasts are heterogeneously dense, which may obscure small masses ?? (ACR BI-RADS breast composition Category c). ? There are no significant masses, abnormal calcifications, or other ?? abnormalities. ? MM/MM tomosynthesis screening BI ?? IMPRESSION: ?? No mammographic evidence of malignancy. ? ASSESSMENT: ? BI-RADS BI-RADS 1 - Negative ? RECOMMENDATION: ?? Routine annual mammography screening. ? 1 year F/U ? This examination should not preclude the clinical evaluation of a ?? suspicious palpable abnormality. ? This patient's information was entered into a reminder system with a ?? target due date for their next mammogram. ? Electronically signed by: ??Isidra Rajan DO ??02/11/2025 04:43 PM EDT ?? RP ? Dictated By: ?Isidra Rajan DO ? Signed By: ?<Electronically signed by Isidra Rajan, DO in OV> ? 02/11/25 1643 ? DD/ 1505 ? TD/TT: 02/05/25 1525 ? Roll Finisher: ? Procedure Note Donotbrendoninterpreter, Image - [facility] [address] [place] [address] Mammography Report Signed Patient: Susan Brewster#: [id number] : 1985Acct:[id number] Age/Sex: 39 / FADM Date: 02/05/25 Loc: HO.MAMMO Attending Dr: Daren Villanueva MD Ordering Physician: Daren Villanueva MDResults: 1 Negative Date of Service: 02/05/25Follow Up: 1 Year From Orig inal Mammogram Procedure(s): MM tomosynthesis screening BI Accession Number(s): [id number] cc: Daren Villanueva MD EXAMINATION: MM SCREENING DIGITAL BREAST TOMOSYNTHESIS, BILATERAL CLINICAL INFORMATION: Screening. Asymptomatic. COMPARISON: Mammography: Baseline. TECHNIQUE: Digital breast mammography with tomosynthesis is performed in both the craniocaudal and mediolateral oblique views along with computer-aided detection (CAD). FINDINGS: The breasts are heterogeneously dense, which may obscure small masses (ACR BI-RADS breast composition Category c). There are no significant masses, abnormal calcifications, or other abnormalities. MM/MM tomosynthesis screening BI IMPRESSION: No mammographic evidence of malignancy. ASSESSMENT: BI-RADS BI-RADS 1 - Negative RECOMMENDATION: Routine annual mammography screening. 1 year F/U This examination should not preclude the clinical evaluation of a suspicious palpable abnormality. This patient's information was entered into a reminder system with a target due date for their next mammogram. Electronically signed by: Isidra Rajan DO 02/11/2025 04:43 PM EDT RP Dictated By: Isidra Rajan DO Signed By: <Electronically signed by Isidra Rajan DO in OV> 02/11/25 1643 DD/ 1505 TD/TT: 02/05/25 1525 Roll Finisher: us Daren Villanueva MD IMG BI PROCEDURES Final Res ult * US Abdomen Limited (01/30/2025 11:03 AM EDT) Anatomical Region Laterality Modality Abdomen Ultrasound 01/30/2025 11:0 3 AM EDT Narrative 01/30/2025 11:54 AM EDT ? [facility] ?[address] ? [place] [address] ? Ultrasound Report ? Signed ? Patient: Narcisa,Lakia ?MR#: [id number] ? : 1985 ?Acct:[id number] ? Age/Sex: 39 / F ?ADM Date: 01/30/25 ? Loc: HO.HMGCX ? Attending Dr: Daren Villanueva MD ? Ordering Physician: Daren Villanueva MD ?? Date of Service: 01/30/25 ?? Procedure(s): US abdomen limited ?? Accession Number(s): [id number] ? cc: Daren Villanueva MD ? EXAMINATION: [...] echogenicity of the liver, most likely ?? sales representative meats of steatosis. No focal lesion. ?? 3. No abnormal intra or extrahepatic biliary dilatation. ? Electronically signed by: ??Mickey Tavarez MD ??01/30/2025 11:51 AM EDT RP ? Dictated By: ?Mickey Tavarez MD ? Signed By: ?<Electronically signed by Mickey Tavarez MD in OV> ?01/30/25 1151 ? DD/ 1103 ? TD/TT: 01/30/25 1121 ? Roll Finisher: ? Procedure Note Rauljonathanbrendonfredrick, Image - 01/30/2025 [facility] [facility] [place] [address] Ultrasound Report Signed Patient: Susan Brewster#: [id number] : 1985Acct:[id number] Age/Sex: 39 / FADM Date: 01/30/25 Loc: HO.HMGCX Attending Dr: Daren Villanueva MD Ordering Physician: Daren Villanueva MD Date of Service: 01/30/25 Procedure(s): US abdomen limited Accession Number(s): [id number] cc: Daren Villanueva MD EXAMINATION: US ABDOMEN [...] increased echogenicity of the liver, most likely sales representative meats of steatosis. No focal lesion. 3. No abnormal intra or extrahepatic biliary dilatation. Electronically signed by: Mickey Tavarez MD 01/30/2025 11:51 AM EDT RP Dictated By: Mickey Tavarez MD Signed By: <Electronically signed by Mickey Tavarez MD in OV> 01/30/25 1151 DD/ 1103 TD/TT: 01/30/25 1121 Roll Finisher: us Daren Villanueva MD IM US PROCEDURES Final Res ult * (ABNORMAL) Urinalysis, Complete, with Reflex to Culture (12/18/2024 3:50 PM EDT) Color Urine Yellow [facility] Appearance Urine Cloudy [facility] PH 6.5 5.0 - 9.0 [facility] Glucose Urine UA Negative Negative mg/dL [facility] Urine Blood Large (3+)(A) Negative [facility] Specific [place] - Urine 1.025 1.005 - 1.025 [facility] Urine Protein Negative Neg-Trace mg/dL [facility] Urine Ketones Negative Negative mg/dL [facility] Nitrite Urine Negative Negative [facility] Leukocyte Esterase Urine Trace(A) Negative [facility] RBC Urine >20(A) 0 - 2 /HPF [facility] Urine WBC 11-20(A) 0 - 5 /HPF [facility] Urine Squamous Epithelial Cell 6-10 0 - 2 /HPF [facility] Urine Bacteria 4+ None Seen [facility] Hyaline Casts, Urine 0-2 0 - 2 /LPF [facility] 12/18/2024 3:50 PM EDT 12/18/2024 6:18 PM EDT Narrative [facility] - 12/18/2024 6:49 PM EDT [id number], Clean Catch us Daren Villanueva MD LAB URINE ORDERABLES Final Result Performing Organization Address [facility]/ZIP Co de Phone Number [facility] [address] [place] [phone] * Syphilis Screen (12/18/2024 3:46 PM EDT) Syphilis Screen Nonreactive Nonreactive [facility] Blood 12/18/2024 3:46 PM EDT 12/18/2024 6:30 PM EDT us Daren Villanueva MD LAB BLOOD ORDERABLES Final Result Performing Organization Address [facility] Co de Phone Number [facility] [address] [place] [phone] * TSH W/Reflex to FT4 (12/18/2024 3:46 PM EDT) TSH reflex Free T4 0.88 0.32 - 4.0 uIU/mL [facility] Blood Venous blood specimen / Unknown 12/18/2024 3:46 PM EDT 12/18/2024 6:30 PM EDT us Daren Villanueva MD LAB BLOOD ORDERABLES Final Result Performing Organization Address [facility] Co de Phone Number [facility] [address] [place] [phone] * (ABNORMAL) CBC auto differential (12/18/2024 3:46 PM EDT) White Blood Count 7.2 4.8 - 10.8 X10*3/uL [facility] Red Blood Count 4.11(L) 4.20 - 5.50 X10*6/uL [facility] Hemoglobin 9.7(L) 12.0 - 16.0 g/dl [facility] Hematocrit 31.0(L) 37.0 - 47.0 % [facility] Mean Corpuscular Volume 75.4(L) 80.0 - 98.0 fL [facility] Mean Corpuscular Hemoglobin 23.6(L) 27.0 - 33.0 pg [facility] Mean Corpuscular HGB Conc 31.3 31.0 - 35.0 g/dl [facility] Red Cell Distribution Width 17.2(H) 11.0 - 16.0 % [facility] Platelet Count 249 160 - 400 X10*3/uL [facility] Mean Platelet Volume 12.8(H) 9.4 - 12.3 fL [facility] Neutrophils Percent Auto 61.1 45 - 73 % [facility] Imm Gran Pct Auto 0.4 0.0 - 0.4 % [facility] Lymphocytes Percent Auto 28.2 20 - 40 % [facility] Monocytes Percent Auto 8.5 2 - 11 % [facility] Eosinophils Percent Auto 1.4 0 - 4 % [facility] Basophils Percent Auto 0.4 0 - 2 % [facility] NRBC Pct Auto 0.0 0.0 - 0.2 /100WBC [facility] Neutrophils Absolute Auto 4.4 2.0 - 8.3 x10*3/uL [facility] Imm Gran Abs Auto 0.03 0.00 - 0.03 X10*3/uL [facility] Lymphocytes Absolute Auto 2.0 1.2 - 4.9 X10*3/uL [facility] Monocytes Absolute Auto 0.6 0.1 - 1.2 X10*3/uL [facility] Eosinophils Absolute Auto 0.1 0.0 - 0.4 X10*3/uL [facility] Basophils Absolute Auto 0.0 0.0 - 0.2 X10*3/uL [facility] NRBC Abs Auto 0.000 0.0 - 0.012 X10*3/uL [facility] Blood Venous blood specimen / Unknown 12/18/2024 3:46 PM EDT 12/18/2024 6:30 PM EDT us Daren Villanueva MD LAB BLOOD ORDERABLES Final Result Performing Organization Address [facility]/ZIP Co de Phone Number [facility] [address] [place] [phone] * Hepatitis C Antibody with Reflex to HCV, RNA, Quantitative, Real-Time PCR (12/18/2024 3:46 PM EDT) Hepatitis C Antibody Nonreactive Nonreactive [facility] Comment:Antibodies to HCV no t detected; does not exclude early acuteHCV infection. Blood Venous blood specimen / Unknown 12/18/2024 3:46 PM EDT 12/18/2024 6:30 PM EDT us Daren Villanueva MD LAB BLOOD ORDERABLES Final Result Performing Organization Address [facility]/ZIP Co de Phone Number [facility] [address] [place] [phone] * RPR (Monitor) with Reflex to??Titer (12/18/2024 3:46 PM EDT) RPR (Monitor) w/Refl Titer NON-REACTI VE NON-REACT IVAN [facility] Comment:THIS TEST WAS PERFOR MED AT:[facility] [place] [phone] PICKETT MD Rapid Plasma Reagin Ab Titer TNP [facility] Blood Venous blood specimen / Unknown 12/18/2024 3:46 PM EDT 12/18/2024 6:30 PM EDT us Daren Villanueva MD LAB BLOOD ORDERABLES Final Result Performing Organization Address City/[facility]/ZIP Co de Phone Number [facility] [address] [place] [phone] * HIV-1/2 Antigen and Antibodies, Fourth Generation, with Reflexes (12/18/2024 3:46 PM EDT) HIV AB/AG Nonreactive Nonreactive [facility] Comment:HIV-1 p24 Ag and/or HIV-1/HIV-2 Ab not detected.A test result that is nonreactive does not exclude thepossibility of exposure to or infection with HIV-1 and/orHIV-2. Nonreactive results in this assay for individualswith prior exposure to HIV-1 and/or HIV-2 may be due toantigen and antibody levels that are below the limit ofdetection of this assay.The Live Current [employer] HIV Ag/Ab Combo assay result andsupplemental assay results should be interpreted inconjunction with the patient's clinical presentation,history and other laboratory results. If the results areinconsistent with clinical evidence, additional testing issuggested to confirm the result. Blood Venous blood specimen / Unknown 12/18/2024 3:46 PM EDT 12/18/2024 6:30 PM EDT us Daren Villanueva MD LAB BLOOD ORDERABLES Final Result Performing Organization Address City/[facility]/ZIP Co de Phone Number [facility] [address] [place] [phone] * Lipid Panel, Standard (12/18/2024 3:46 PM EDT) Triglycerides 81 <150 mg/dL [facility] Comment:Desirable Triglyceri de: less than 150 mg/dLBorderline High Triglyceride 150-199 mg/dLHigh Triglyceride: 200-499 mg/dLVery High Triglyceride: greater than or equal to 5OO mg/dL Cholesterol 149 <200 mg/dL [facility] Comment:Desirable Cholestero l: less than 200 mg/dLBorderline High Cholesterol: 200-239 mg/dLHigh Cholesterol: greater than 239 mg/dL LDL Cholesterol Calculated 79 <100 mg/dL [facility] Comment:Desirable LDL: less than 100 mg/dLNear Optimal/Above Optimal LDL: 110- 129 mg/dLBorderline High LDL: 130-159 mg/dLHigh LDL: 160-189 mg/dLVery High LDL: greater than or equal to 190 mg/dL HDL Cholesterol 54 >40 mg/dL [facility] Comment:Desirable HDL: great er than 40 mg/dL Note: This HDL assay may give artificially low results in patients with liver disease. Blood Venous blood specimen / Unknown 12/18/2024 3:46 PM EDT 12/18/2024 6:30 PM EDT us Daren Villanueva MD LAB BLOOD ORDERABLES Final Result [facility] [address] [place] [phone] * (ABNORMAL) Comprehensive Metabolic Panel (12/18/2024 3:46 PM EDT) Sodium 142 135 - 145 mmol/L [facility] Potassium 3.3 3.3 - 5.1 mmol/L [facility] Chloride 111(H) 96 - 108 mmol/L [facility] Carbon Dioxide 24 22 - 29 mmol/L [facility] Anion Gap 10(L) 12 - 20 [facility] Urea Nitrogen (BUN) 12 9 - 16 mg/dL [facility] Creatinine, Serum 0.66 0.5 - 1.4 mg/dL [facility] Estimated Glomerular Filt Rate >60 [facility] Comment:Chronic Kidney Disea se: Estimated GFR < 60 mL/min/1.45d6Dsftft Kidney Disease: Estimated GFR < 15 mL/min/1.73m2 Glucose 92 60 - 115 mg/dL [facility] Calcium 9.0 8.4 - 10.2 mg/dL [facility] Bilirubin, Total 0.2 0.0 - 1.0 mg/dL [facility] Aspartate Amino Transferase 28 5 - 31 U/L [facility] Alanine Aminotransferase 24 0 - 31 U/L [facility] Total Protein 7.1 6.5 - 8.0 g/dL [facility] Albumin Level 4.0 3.5 - 5.0 g/dL [facility] Alkaline Phosphatase 77 39 - 117 U/L [facility] Blood Venous blood specimen / Unknown 12/18/2024 3:46 PM EDT 12/18/2024 6:30 PM EDT Daren Villanueva MD LAB BLOOD ORDERABLES Final Result Performing Organization Address [facility] Co de Phone Number [facility] [address] [place] [phone] * Culture, Urine, Routine (12/18/2024 12:00 AM EDT) Urine Urine specimen obtained by clean catch procedure / Unknown 12/18/2024 12/18/2024 Comment:CC Narrative [facility] - 12/20/2024 7:43 AM EDT Klebsiella aerogenes Quant > 100,000 cfu/mL Klebsiella aerogenes: Ampicillin 16(R) Klebsiella aerogenes: Cefazolin >=32(R) Klebsiella aerogenes: Cefepime <=0.12(S) Klebsiella aerogenes: Ceftriaxone <=0.25(S) Klebsiella aerogenes: Ciprofloxacin <=0.06(S) Klebsiella aerogenes: Gentamicin <=1(S) Klebsiella aerogenes: Nitrofurantoin 128(R) Klebsiella aerogenes: Trimethoprim/Sulfamethoxazole <=20(S) Specimen Source: Urine clean catch Daren Villanueva MD LAB MICROBIOLOGY - GENERAL ORDERABLES Final Result Performing Organization Address [facility] Co de Phone Number [facility] [address] [place] [phone] * ThinPrep?? Imaging Pap Refl HPV mRNA(if ASCUS,ASC-H,LSIL,HSIL,MAICO)Refl Genotype (04/03/2024 12:00 AM EDT) HPV nRNA E6/E7 [facility] HPV 16,18/45 [facility] SOURCE: SEE NOTE [facility] Comment:None given Report Status: [facility] Clinical Information: SEE NOTE [facility] Comment:None given LMP: SEE NOTE [facility] Comment:NONE GIVEN Prev. PAP: SEE NOTE [facility] Comment:NONE GIVEN Prev. BX: SEE NOTE [facility] Comment:NONE GIVEN Statement Of Adequacy: SEE NOTE [facility] Comment:Satisfactory for marquita luation.Endocervical/transformation zone componentpresent. General Categorization: [facility] Interpretation/Result: SEE [facility] Comment:Cytology Results: Ne gative for intraepitheliallesion or malignancy. Cytology Comment SEE NOTE [facility] Comment:This Pap test has be en evaluated with computerassisted technology. Information Assurance Officer: SEE NOTE [facility] Comment:SXA, CT(ASCP)CT scre ening location: [address] [address] Review Information Assurance Officer: [facility] Pathologist [facility] PAP Infection [facility] See Note SEE [facility] Comment:EXPLANATORY NOTE:The Pap is a screening test for cervical cancer. It isnot a diagnostic test and is subject to false negativeand false positive results. It is most reliable when asatisfactory sample, regularly obtained, is submittedwith relevant clinical findings and history, and whenthe Pap result is evaluated along with historic andcurrent clinical information.THIS TEST WAS PERFORMED AT:[facility] [address] [phone] PICKETT MD 04/03/2024 04/03/2024 us Diann Pineda MD LAB CYTOLOGY ORDERABLES Final Result [facility] [address] [place] [phone] * HPV mRNA E6/E7 (08/15/2018 10:08 AM EST) HPV mRNA E6/E7 Not Detected NOT DETECTED [facility] Comment: This test was performed using the APTIMA(R) HPV Assay ([employer] This assay detects E6/E7 viral messenger RNA (mRNA) from 14 high-risk HPV types (16,18,31,33,35,39,45,51, 52,56,58,59,66,68). For additional information please refer to: http://education.BookingBug/faq/EGT083g0 (This link is being provided for informational/ educational purposes only.) The analytical performance characteristics of this assay have been determined by [employer] [place], [place]. The modifications have not been cleared or approved by the FDA. This assay has been validated pursuant to the CLIA regulations and is used for clinical purposes. Test Performed by [facility] [employer] [facility], [address] [place] [address] Rickie Cobian M.D., Ph.D., Director of Laboratories , CLIA [id number] Please note: ??Effective 06/21/2016, HPV testing will be performed using [employer]'s APTIMA test which targets mRNA. Detecting mRNA instead of DNA, as in older methods, offers significant improvements in specificity. 08/15/2018 10:0 8 AM EST us Nia Reyes CNM HISTORICAL/NON ORDERABLE LABS Final Result [facility] [address] from Last 3 Months or Most Recently Relevant to Health Maintenance Insurance [facility] C3 Care Teams Rotary Furnace Tender Relationship Specialty Start Date End Date Daren Villanueva MD [address] [place] [address] ANALILIA Matias [id number] PCP - General Internal Medicine 08/30/11
--- OUTSIDE RECORDS SUMMARY | 2025-02-20 12:26 | XMS_ITS | Clinical Summary ---
Author Organization [facility] it Address [address] [place] [address] Care Team Providers Care Cone Operator Name Role Phone Unavailable Primary Care Provider [...]
--- OUTSIDE RECORDS SUMMARY | 2025-02-20 12:26 | XMS_ITS | Encounter Summary ---
Author Organization [employer] Address [address] [facility] 7 [place] [address] Care Team Providers Care Sofa Cover Inspector Name Role Phone Daren Villanueva MD Primary Care Provider [phone]- [phone] Encounter Details Date Type Department Care Team (Late st Contact Info) Description 12/19/2024 Orders Only [facility] [address] [place] [address] Daren Villanueva MD [address] [facility] [place] [phone] Microcytic anemia (Primary Dx); Urinary tract infection [...] your housing situation today? I have kay dontrell 12/18/[address] you li [...] documented as of this encounter Care Teams Sofa Cover Inspector Relationship Specialty Start Date End Date Daren Villanueva MD [address] [place] [id number] PCP - General Internal Medicine 08/30/11 documented as of this encounter
--- OUTSIDE RECORDS SUMMARY | 2025-02-20 12:26 | XMS_ITS | Encounter Summary ---
Author Organization [employer] Address [address] [place] [address] Care Team Providers Care Commercial Account Officer Name Role Phone Daren Villanueva MD Primary Care Provider Encounter Details Date Type Department Care Team ([facility] Contact Info) Description 04/18/2023 Telephone [facility] CHC MED & PEDS [address] [facility] [address] Daren Villanueva MD [address] [place] [address] Social History Tobacco Use Types Packs/Day Years [...] on filedocumented in this encounter Care Teams Commercial Account Officer Relationship Specialty Start Date End Date Daren Villanueva MD [address] [place] [address] PCP - General Internal Medicine 08/30/11 documented as of this encounter
--- OUTSIDE RECORDS SUMMARY | 2025-02-20 12:26 | XMS_ITS | Encounter Summary ---
Author Organization [employer] Address [address] [facility] 7t [place] [address] Care Team Providers Care Band Aid Machine Operator Name Role Phone Daren Villanueva MD Primary Care Provider [phone]- [phone] Reason for Referral * Consultation (Urgent) - Authorized Specialty Diagnoses / Procedures Referred By Contac t Referred To Contact General Surgery Diagnoses Calculus of gallbladder with acute cholecystitis without obstruction Daren Villanueva MD [address] [place] [address] Phone: tel: fax: [facility] [place] [place] General Surgeons [address] [place] [address] [address] [place], [place] Phone: tel: fax: Referral ID Status Reason Start Date Expiration Date Visits Requested Visits Authorized [id number] Authorized Specialty Services Required 02/01/2025 02/01/2026 1 1 Encounter Details Date Type Department Care Team (Late st Contact Info) Description 02/01/2025 Orders Only [facility] CHC MED & PEDS [address] [place] [address] Daren Villanueva MD [address] [place] [phone] Calculus of gallbladder with acute cholecystitis without obstruction (Primary Dx) Social History Tobacco Use Types Packs/Day Years [...] of this encounter Plan of Treatment Scheduled Referrals Name Type Priority Associated Diagnoses Orde r Schedule Referral to General Surgery Outpatient Referral Urgent Calculus of gallbladder with acute cholecystitis without obstruction Expected: 02/01/2025 (Approximate), Expires: 02/01/2026 documented as of this encounter Visit Diagnoses Diagnosis Calculus of gallbladder with acute cholecystitis without obstruction- Primary documented in this encounter Additional Health Concerns Assessment Noted Time PHQ-9 Depression Total Score: 0 12/12/19 24 2:36 PM EST documented as of this encounter Care Teams Band Aid Machine Operator Relationship Specialty Start Date End Date Daren Villanueva MD [address] [place] [address] PCP - General Internal Medicine 08/30/11 documented as of this encounter
== END 2025-02-20 11:52 | disposition home or self-care (01) ==
LOC: HO.HGS 11:29
PROVIDERS: PCP Internal Medicine; Visit Provider Surgery
DX: K80.20 Calculus of gallbladder without cholecystitis without obstruction (principal)
CPT/HCPCS: 99203

== ENCOUNTER → 2025-02-20 11:28 | Outpatient (BNVA) | payer MEDICAID, SELFPAY | PROVIDERS: PCP Internal Medicine; Visit Provider Surgery | DX: K80.20 Calculus of gallbladder without cholecystitis without obstruction (principal) | CPT/HCPCS: 99202 ==

== ENCOUNTER 2025-03-08 09:34 | Day surgery (SDC) | payer MEDICAID, SELFPAY ==
--- OUTSIDE RECORDS SUMMARY | 2025-02-25 09:21 | XMS_ITS | Encounter Summary ---
Author Organization [employer] Address [address] [place] [address] Care Team Providers Care Security Risk Analyst Name Role Phone Daren Villanueva MD Primary Care Provider Encounter Details Date Type Department Care Team ([facility] Contact Info) Description 04/18/2023 Telephone [facility] CHC MED & PEDS [address] [place] [address] Daren Villanueva MD [address] [place] [address] Social History Tobacco Use Types Packs/Day Years [...] on filedocumented in this encounter Care Teams Security Risk Analyst Relationship Specialty Start Date End Date Daren Villanueva MD [address] [place] [address] PCP - General Internal Medicine 08/30/11 documented as of this encounter
--- OUTSIDE RECORDS SUMMARY | 2025-02-25 09:21 | XMS_ITS | Encounter Summary ---
Author Organization [employer] Address [address] [facility] 7 [place] [address] Care Team Providers Care Dinkey Engine Firer Name Role Phone Daren Villanueva MD Primary Care Provider [phone]- [phone] Encounter Details Date Type Department Care Team (Late st Contact Info) Description 12/19/2024 Orders Only [facility] MEDICINE [address] [place] [address] Daren Villanueva MD 505 [facility] [place] [phone] Microcytic anemia (Primary Dx); Urinary tract infection [...] documented as of this encounter Care Teams Dinkey Engine Firer Relationship Specialty Start Date End Date Daren Villanueva MD [address] [place] [address] PCP - General Internal Medicine 08/30/11 documented as of this encounter
--- OUTSIDE RECORDS SUMMARY | 2025-02-25 09:21 | XMS_ITS | Encounter Summary ---
Author Organization [employer] Address [address] [facility] 7t [place] [address] Care Team Providers Care Photographic Hand Developer Name Role Phone Daren Villanueva MD Primary Care Provider [phone]- [phone] Reason for Referral * Consultation (Urgent) - Closed Specialty Diagnoses / Procedures Referred By Contac t Referred To Contact General Surgery Diagnoses Calculus of gallbladder with acute cholecystitis without obstruction Daren Villanueva MD [address] [place] [address] Phone: tel: fax: [facility] [place] [facility] Surgeons [address] [place], [place] Phone: tel: fax: Referral ID Status Reason Start Date Expiration Date V isits Requested Visits Authorized [id number] Closed Specialty Services Required 02/01/2025 02/01/2026 1 1 Encounter Details Date Type Department Care Team (Late st Contact Info) Description 02/01/2025 Orders Only [facility] CHC MED & PEDS [address] [place] [address] Daren Villanueva MD [address] [place] [address] Calculus of gallbladder with acute cholecystitis without [...] Procedure Name Priority Date/Time Associated Diagnosis Comments AMB REFERRAL TO GENERAL SURGERY Urgent 01/21/2025 Calculus of gallbladder with acute cholecystitis without obstruction documented in this encounter Results * Referral to General Surgery (01/21/2025) us Daren Villanueva MD OUTPATIENT REFERRAL ORDERAB LES Final Result documented in this encounter Visit Diagnoses Diagnosis Calculus of gallbladder with acute cholecystitis without obstruction- Primary documented in this encounter Additional Health Concerns Assessment Noted Time PHQ-9 Depression Total Score: 0 12/12/19 24 2:36 PM EST documented as of this encounter Care Teams Photographic Hand Developer Relationship Specialty Start Date End Date Daren Villanueva MD [address] [place] [id number] PCP - General Internal Medicine 08/30/11 documented as of this encounter
--- OUTSIDE RECORDS SUMMARY | 2025-02-25 09:21 | XMS_ITS | Clinical Summary ---
Author Organization [facility] it Address [address] [place] [address] Care Team Providers Care Languages And Literature Instructor Name Role Phone Unavailable Primary Care Provider [...]
--- OUTSIDE RECORDS SUMMARY | 2025-02-25 09:22 | XMS_ITS | Clinical Summary ---
Author Organization [employer] Address [address] [place] [address] 7[address] [place] [address] Care Team Providers Care Syrup Filterer Name Role Phone Daren Villanueva MD Primary Care Provider [phone] Allergies Active Allergy Reactions Criticality Noted Date Comments [place] Meal (Obsolete) Itching,Shortness of breath,Swelling,Whee zing High 02/17/2007 [place] Oil 04/02/2024 Apple Fruit Extract Itching,Swelling 02/17/2005 [...] per week. 2 mL 1 025 Active ferrous sulfate (Fe Tabs) 325 (65 Fe) MG EC tabletIndicatio ns:Microcytic anemia Take 1 tablet (325 mg) by mouth with breakfast. Do not crush, chew, or split. 30 tablet 11 025 2025 Active Mometasone Furoate (Asmanex, 120 Metered Doses,) 220 MCG/ACT aerosol powderIndicatio ns:Mild intermittent asthma without complication Inhale 1 Act (220 mcg) Once per day. 1 each 3 025 Active celecoxib (CeleBREX) 200 MG capsuleIndicati ons:Right upper quadrant abdominal pain TAKE 1 CAPSULE BY MOUTH 2 TIMES DAILY. 60 capsule 025 Active celecoxib (CeleBREX) 200 MG capsuleIndicati ons:Right upper quadrant abdominal pain Take 1 capsule (200 mg) by mouth 2 times daily. 60 capsule 025 2024 Discontinued Active Problems Problem Noted Date Diagnosed Date Cervical cancer screening 04/03/2024 Class 2 obesity 04/02/2024 Gestational diabetes mellitus (GDM) 04/02/2024 Mild intermittent asthma without complication Encounters Date Type Department Care Team Description 02/14/2025 Refill [facility] [address] [place], [place] [phone] Daren Villanueva MD Right upper quadrant abdominal pain 02/01/2025 Orders Only [facility] [address] [place] [address] Daren Villanueva MD Calculus of gallbladder with acute cholecystitis without obstruction (Primary Dx) 01/18/2025 3:45 PM EDT Office Visit [facility] [address] [place] [address] Daren Villanueva MD Right upper quadrant abdominal pain (Primary Dx); Mild intermittent asthma without complication; Nausea 01/18/2025 Travel 01/14/2025 Telephone [facility] [address] [place] [address] Daren Villanueva MD ER Follow-up 12/21/2024 Population Health Risk Score [facility] () [address] [phone] Provider, Population Health Generic 12/19/2024 Telephone [facility] [address] [place] [address] Daren Villanueva MD Results 12/19/2024 Orders Only [facility] [address] [place] [address] Daren Villanueva MD Microcytic anemia (Primary Dx); Urinary tract infection with hematuria, site unspecified 12/18/2024 2:45 PM EDT Office Visit [facility] [address] [place] [place] [address] Daren Villanueva MD Annual physical exam (Primary Dx); Mild intermittent asthma without complication; Dietary counseling; Exercise counseling; Class 1 obesity due to excess calories without serious comorbidity with body mass index (BMI) of 30.0 to 30.9 in adult; Encounter for screening mammogram for malignant neoplasm of breast 12/18/2024 Orders Only [facility] [address] [place] [address] Daren Villanueva MD 12/18/2024 Travel 12/11/2024 Patient Outreach [facility] [address] [place] [address] Daren Villanueva MD Pre-visit Planning ([facility] unable to reach LVM ) from Last 3 Months Immunizations Immunization [...] LIMITED Urgent 01/30/2025 11 :03 AM EDT AMB REFERRAL TO GENERAL SURGERY Urgent 01/21/2025 Calculus of gallbladder with acute cholecystitis without obstruction URINALYSIS, COMPLETE, WITH REFLEX TO CULTURE Routine [...] EDT Narrative 02/11/2025 4:46 PM EDT ? [facility] [place] ? [address] [facility] ?[place] [address] ?[phone] ? Mammography Report ? Signed ? Patient: Narcisa,Lakia ?MR#: [id number] ? : 1985 ?Acct:[id number] ? Age/Sex: 39 / F ?ADM Date: 04/29/25 ? Loc: HO.MAMMO ? Attending Dr: Daren Villanueva MD ? Ordering Physician: Daren Villanueva MD ?Results: 1 ?? Negative ? Date of Service: 02/05/25 ?Follow Up: 1 Year From Orig ?? inal Mammogram ? Procedure(s): MM tomosynthesis screening BI ?? Accession Number(s): [id number] ? cc: Daren Villanueva MD ? EXAMINATION: [...] DD/ 1505 ? TD/TT: 02/05/25 1525 ? Optometrist/Practice Owner: ? Procedure Note Donotuseinterpreter, Image - [facility] [address] [place] [address] Mammography Report Signed Patient: Susan Brewster#: [id number] : 1985Acct:[id number] Age/Sex: 39 / FADM Date: 02/05/25 Loc: HO.MAMMO Attending Dr: Daren Villanueva MD Ordering Physician: Daren Villanueva MDResults: 1 Negative Date of Service: 02/05/25Follow Up: 1 Year From Orig inal Mammogram Procedure(s): MM tomosynthesis screening BI Accession Number(s): [id number] cc: Daren Villanueva MD EXAMINATION: MM SCREENING [...] Isidra Rajan DO 02/11/2025 04:43 PM EDT Dictated By: Isidra Rajan DO Signed By: <Electronically signed by Isidra Rajan DO in OV> 05/05/25 1643 DD/ 1505 TD/TT: 02/05/25 1525 Optometrist/Practice Owner: us Daren Villanueva MD IMG BI PROCEDURES Final Res ult * US Abdomen Limited (01/30/2025 11:03 AM EDT) Anatomical Region Laterality Modality Abdomen Ultrasound 01/30/2025 11:0 3 AM EDT Narrative 01/30/2025 11:54 AM EDT ? [facility] ?[address] ? [place] [address] ? Ultrasound Report ? Signed ? Patient: Lakia Brewster ?MR#: [id number] ? : 1985 ?Acct:[id number] ? Age/Sex: 39 / F ?ADM Date: 01/30/25 ? Loc: HO.HMGCX ? Attending Dr: Daren Villanueva MD ? Ordering Physician: Daren Villanueva MD ?? Date of Service: 01/30/25 ?? Procedure(s): US abdomen limited ?? Accession Number(s): [id number] ? cc: Daren Villanueva MD ? EXAMINATION: [...] the liver, most likely ?? sales representative cash registers of steatosis. No focal lesion. ?? 3. No abnormal intra or extrahepatic biliary dilatation. ? Electronically signed by: ??Mickey Tavarez MD ??01/30/2025 11:51 AM EDT RP ? Dictated By: ?Mickey Tavarez MD ? Signed By: ?<Electronically signed by Mickey Tavarez MD in OV> ?01/30/25 1151 ? DD/ 1103 ? TD/TT: 01/30/25 1121 ? Optometrist/Practice Owner: ? Procedure Note Donpaty, Image - 01/30/2025 [facility] [address] [place] [address] [place] [address] Ultrasound Report Signed Patient: Susan Brewster#: [id number] : 1985Acct:[id number] Age/Sex: 39 / FADM Date: 01/30/25 [facility]: Daren Villanueva MD Ordering Physician: Daren Villanueva MD Date of Service: 01/30/25 Procedure(s): US abdomen limited Accession Number(s): [id number] cc: Daren Villanueva MD EXAMINATION: US ABDOMEN [...] of the liver, most likely sales representative cash registers of steatosis. No focal lesion. 3. No abnormal intra or extrahepatic biliary dilatation. Electronically signed by: Mickey Tavarez MD 01/30/2025 11:51 AM EDT RP Dictated By: Mickey Tavarez MD Signed By: <Electronically signed by Mickey Tavarez MD in OV> 01/30/25 1151 DD/ 1103 TD/TT: 01/30/25 1121 Optometrist/Practice Owner: us Daren Villanueva MD IMG US PROCEDURES Final Res ult * Referral to General Surgery (01/21/2025) us Daren Villnaueva MD OUTPATIENT REFERRAL ORDERAB LES Final Result * (ABNORMAL) Urinalysis, Complete, with Reflex to Culture (12/18/2024 3:50 PM EDT) Color Urine Yellow [facility] Appearance Urine Cloudy [facility] PH 6.5 5.0 - 9.0 [facility] Glucose Urine UA Negative Negative mg/dL [facility] Urine Blood Large (3+)(A) Negative [facility] Specific [place] - Urine 1.025 1.005 - 1.025 [facility] Urine Protein Negative Neg-Trace mg/dL [facility] Urine Ketones Negative Negative mg/dL [facility] Nitrite Urine Negative Negative [facility] Leukocyte Esterase Urine Trace(A) Negative [facility] RBC Urine >20(A) 0 - 2 /HPF [facility] Urine WBC 11-20(A) 0 - 5 /HPF [facility] Urine Squamous Epithelial Cell 6-10 0 - 2 /HPF [facility] Urine Bacteria 4+ None Seen [facility] Hyaline Casts, Urine 0-2 0 - 2 /LPF [facility] 12/18/2024 3:50 PM EDT 12/18/2024 6:18 PM EDT Narrative [facility] - 12/18/2024 6:49 PM EDT [id number], Clean Catch us Daren Villanueva MD LAB URINE ORDERABLES Final Result Performing Organization Address [facility]/ZIP Co de Phone Number [facility] [address] [place] [phone] * Syphilis Screen (12/18/2024 3:46 PM EDT) Syphilis Screen Nonreactive Nonreactive [facility] Blood 12/18/2024 3:46 PM EDT 12/18/2024 6:30 PM EDT us Daren Villanueva MD LAB BLOOD ORDERABLES Final Result Performing Organization Address [facility] Co de Phone Number [facility] [address] [place] [phone] * TSH W/Reflex to FT4 (12/18/2024 3:46 PM EDT) TSH reflex Free T4 0.88 0.32 - 4.0 uIU/mL [facility] Blood Venous blood specimen / Unknown 12/18/2024 3:46 PM EDT 12/18/2024 6:30 PM EDT us Daren Villanueva MD LAB BLOOD ORDERABLES Final Result Performing Organization Address City/[facility]/ZIP Co de Phone Number [facility] [address] [place] [phone] * (ABNORMAL) CBC auto differential (12/18/2024 3:46 PM EDT) White Blood Count 7.2 4.8 - 10.8 X10*3/uL [facility] Red Blood Count 4.11(L) 4.20 - 5.50 X10*6/uL [facility] Hemoglobin 9.7(L) 12.0 - 16.0 g/dl [facility] Hematocrit 31.0(L) 37.0 - 47.0 % [facility] Mean Corpuscular Volume 75.4(L) 80.0 - 98.0 fL [facility] Mean Corpuscular Hemoglobin 23.6(L) 27.0 - 33.0 pg [facility] Mean Corpuscular HGB Conc 31.3 31.0 - 35.0 g/dl [facility] Red Cell Distribution Width 17.2(H) 11.0 - 16.0 % [facility] Platelet Count 249 160 - 400 X10*3/uL [facility] Mean Platelet Volume 12.8(H) 9.4 - 12.3 fL [facility] Neutrophils Percent Auto 61.1 45 - 73 % [facility] Imm Gran Pct Auto 0.4 0.0 - 0.4 % [facility] Lymphocytes Percent Auto 28.2 20 - 40 % [facility] Monocytes Percent Auto 8.5 2 - 11 % [facility] Eosinophils Percent Auto 1.4 0 - 4 % [facility] Basophils Percent Auto 0.4 0 - 2 % [facility] NRBC Pct Auto 0.0 0.0 - 0.2 /100WBC [facility] Neutrophils Absolute Auto 4.4 2.0 - 8.3 x10*3/uL [facility] Imm Gran Abs Auto 0.03 0.00 - 0.03 X10*3/uL [facility] Lymphocytes Absolute Auto 2.0 1.2 - 4.9 X10*3/uL [facility] Monocytes Absolute Auto 0.6 0.1 - 1.2 X10*3/uL [facility] Eosinophils Absolute Auto 0.1 0.0 - 0.4 X10*3/uL [facility] Basophils Absolute Auto 0.0 0.0 - 0.2 X10*3/uL [facility] NRBC Abs Auto 0.000 0.0 - 0.012 X10*3/uL [facility] Blood Venous blood specimen / Unknown 12/18/2024 3:46 PM EDT 12/18/2024 6:30 PM EDT us Daren Villanueva MD LAB BLOOD ORDERABLES Final Result Performing Organization Address [facility]/ZIP Co de Phone Number [facility] [address] [place] [phone] * Hepatitis C Antibody with Reflex to HCV, RNA, Quantitative, Real-Time PCR (12/18/2024 3:46 PM EDT) Hepatitis C Antibody Nonreactive Nonreactive [facility] Comment:Antibodies to HCV no t detected; does not exclude early acuteHCV infection. Blood Venous blood specimen / Unknown 12/18/2024 3:46 PM EDT 12/18/2024 6:30 PM EDT us Daren Villanueva MD LAB BLOOD ORDERABLES Final Result Performing Organization Address City/[facility]/ZIP Co de Phone Number [facility] [address] [place] [phone] * RPR (Monitor) with Reflex to??Titer (12/18/2024 3:46 PM EDT) RPR (Monitor) w/Refl Titer NON-REACTI VE NON-REACT IVAN [facility] Comment:THIS TEST WAS PERFOR MED AT:[id number] [place] [phone] PICKETT MD Rapid Plasma Reagin Ab Titer TNP [facility] Blood Venous blood specimen / Unknown 12/18/2024 3:46 PM EDT 12/18/2024 6:30 PM EDT us Daren Villanueva MD LAB BLOOD ORDERABLES Final Result Performing Organization Address City/[facility] Co de Phone Number [facility] [address] [place] [phone] * HIV-1/2 Antigen and Antibodies, Fourth Generation, with Reflexes (12/18/2024 3:46 PM EDT) HIV AB/AG Nonreactive Nonreactive [facility] Comment:HIV-1 p24 Ag and/or HIV-1/HIV-2 Ab not detected.A test result that is nonreactive does not exclude thepossibility of exposure to or infection with HIV-1 and/orHIV-2. Nonreactive results in this assay for individualswith prior exposure to HIV-1 and/or HIV-2 may be due toantigen and antibody levels that are below the limit ofdetection of this assay.The [employer] HIV Ag/Ab Combo assay result andsupplemental assay results should be interpreted inconjunction with the patient's clinical presentation,history and other laboratory results. If the results areinconsistent with clinical evidence, additional testing issuggested to confirm the result. Blood Venous blood specimen / Unknown 12/18/2024 3:46 PM EDT 12/18/2024 6:30 PM EDT us Daren Villanueva MD LAB BLOOD ORDERABLES Final Result Performing Organization Address City/[facility]/ZIP Co de Phone Number [facility] [address] [place] [phone] [phone] * Lipid Panel, Standard (12/18/2024 3:46 PM EDT) Triglycerides 81 <150 mg/dL [facility] Comment:Desirable Triglyceri de: less than 150 mg/dLBorderline High Triglyceride 150-199 mg/dLHigh Triglyceride: 200-499 mg/dLVery High Triglyceride: greater than or equal to 5OO mg/dL Cholesterol 149 <200 mg/dL [facility] Comment:Desirable Cholestero l: less than 200 mg/dLBorderline High Cholesterol: 200-239 mg/dLHigh Cholesterol: greater than 239 mg/dL LDL Cholesterol Calculated 79 <100 mg/dL [facility] Comment:Desirable LDL: less than 100 mg/dLNear Optimal/Above Optimal LDL: 110- 129 mg/dLBorderline High LDL: 130-159 mg/dLHigh LDL: 160-189 mg/dLVery High LDL: greater than or equal to 190 mg/dL HDL Cholesterol 54 >40 mg/dL [facility] Comment:Desirable HDL: great er than 40 mg/dL Note: This HDL assay may give artificially low results in patients with liver disease. Blood Venous blood specimen / Unknown 12/18/2024 3:46 PM EDT 12/18/2024 6:30 PM EDT us Daren Villanueva MD LAB BLOOD ORDERABLES Final Result [facility] [address] [place] [phone] [phone] * (ABNORMAL) Comprehensive Metabolic Panel (12/18/2024 3:46 PM EDT) Sodium 142 135 - 145 mmol/L [facility] Potassium 3.3 3.3 - 5.1 mmol/L [facility] Chloride 111(H) 96 - 108 mmol/L [facility] Carbon Dioxide 24 22 - 29 mmol/L [facility] Anion Gap 10(L) 12 - 20 [facility] Urea Nitrogen (BUN) 12 9 - 16 mg/dL [facility] Creatinine, Serum 0.66 0.5 - 1.4 mg/dL [facility] Estimated Glomerular Filt Rate >60 [facility] Comment:Chronic Kidney Disea se: Estimated GFR < 60 mL/min/1.26c5Xmdies Kidney Disease: Estimated GFR < 15 mL/min/1.73m2 Glucose 92 60 - 115 mg/dL [facility] Calcium 9.0 8.4 - 10.2 mg/dL [facility] Bilirubin, Total 0.2 0.0 - 1.0 mg/dL [facility] Aspartate Amino Transferase 28 5 - 31 U/L [facility] Alanine Aminotransferase 24 0 - 31 U/L [facility] Total Protein 7.1 6.5 - 8.0 g/dL [facility] Albumin Level 4.0 3.5 - 5.0 g/dL [facility] Alkaline Phosphatase 77 39 - 117 U/L [facility] Blood Venous blood specimen / Unknown 12/18/2024 3:46 PM EDT 12/18/2024 6:30 PM EDT Daren Villanueva MD LAB BLOOD ORDERABLES Final Result Performing Organization Address [facility] de Phone Number [facility] [address] [place] [phone] * Culture, Urine, Routine (12/18/2024 12:00 AM EDT) Urine Urine specimen obtained by clean catch procedure / Unknown 12/18/2024 12/18/2024 Comment:[facility] Narrative [facility] - 12/20/2024 7:43 AM EDT Klebsiella aerogenes Quant > 100,000 cfu/mL Klebsiella aerogenes: Ampicillin 16(R) Klebsiella aerogenes: Cefazolin >=32(R) Klebsiella aerogenes: Cefepime <=0.12(S) Klebsiella aerogenes: Ceftriaxone <=0.25(S) Klebsiella aerogenes: Ciprofloxacin <=0.06(S) Klebsiella aerogenes: Gentamicin <=1(S) Klebsiella aerogenes: Nitrofurantoin 128(R) Klebsiella aerogenes: Trimethoprim/Sulfamethoxazole <=20(S) Specimen Source: Urine clean catch Daren Villanueva MD LAB MICROBIOLOGY - GENERAL ORDERABLES Final Result Performing Organization Address [facility] Co de Phone Number [facility] [address] [place] [phone] * ThinPrep?? Imaging Pap Refl HPV mRNA(if ASCUS,ASC-H,LSIL,HSIL,MAICO)Refl Genotype (04/03/2024 12:00 AM EDT) HPV nRNA E6/E7 [facility] HPV 16,18/45 [facility] SOURCE: SEE NOTE [facility] Comment:None given Report Status: [facility] Clinical Information: SEE NOTE [facility] Comment:None given LMP: SEE NOTE [facility] Comment:NONE GIVEN Prev. PAP: SEE NOTE [facility] Comment:NONE GIVEN Prev. BX: SEE NOTE [facility] Comment:NONE GIVEN Statement Of Adequacy: SEE NOTE [facility] Comment:Satisfactory for marquita luation.Endocervical/transformation zone componentpresent. General Categorization: [facility] Interpretation/Result: SEE [facility] Comment:Cytology Results: Ne gative for intraepitheliallesion or malignancy. Cytology Comment SEE NOTE [facility] Comment:This Pap test has be en evaluated with computerassisted technology. Social Media Content Specialist: SEE NOTE [facility] Comment:SXA, CT(ASCP)CT scre ening location: [address] [address] Review Social Media Content Specialist: [facility] Pathologist [facility] PAP Infection [facility] See Note SEE [facility] Comment:EXPLANATORY NOTE:The Pap is a screening test for cervical cancer. It isnot a diagnostic test and is subject to false negativeand false positive results. It is most reliable when asatisfactory sample, regularly obtained, is submittedwith relevant clinical findings and history, and whenthe Pap result is evaluated along with historic andcurrent clinical information.THIS TEST WAS PERFORMED AT:[facility] [address] [phone] PICKETT MD 04/03/2024 04/03/2024 us Diann Pineda MD LAB CYTOLOGY ORDERABLES Final Result [facility] [address] [place] [phone] [phone] * HPV mRNA E6/E7 (08/15/2018 10:08 AM EST) HPV mRNA E6/E7 Not Detected NOT DETECTED [facility] Comment: This test was performed using the APTIMA(R) HPV Assay ([employer] This assay detects E6/E7 viral messenger RNA (mRNA) from 14 high-risk HPV types (16,18,31,33,35,39,45,51, 52,56,58,59,66,68). For additional information please refer to: http://education.[employer]/faq/ZED756n7 (This link is being provided for informational/ educational purposes only.) The analytical performance characteristics of this assay have been determined by [employer] [place], [place]. The modifications have not been cleared or approved by the FDA. This assay has been validated pursuant to the CLIA regulations and is used for clinical purposes. Test Performed by [facility], [address] [place] [address] Rickie Cobian M.D., Ph.D., Director of Laboratories , CLIA [id number] Please note: ??Effective 06/21/2016, HPV testing will be performed using [employer]'s APTIMA test which targets mRNA. Detecting mRNA instead of DNA, as in older methods, offers significant improvements in specificity. 08/15/2018 10:0 8 AM EST us Nia Reyes CNM HISTORICAL/NON ORDERABLE LABS Final Result [facility] [address] from Last 3 Months or Most Recently Relevant to Health Maintenance Insurance [facility] C3 Care Teams Syrup Filterer Relationship Specialty Start Date End Date Daren Villanueva MD [address] [place] [address] [place] [address] PCP - General Internal Medicine 08/30/11
[2025-03-06 14:55] VITALS: BMI 32.8
[2025-03-06 15:30] VITALS: BMI 33.9
[2025-03-08] VITALS (14 sets, daily range): BP systolic 110–139; BP diastolic 50–82; PULSE 67–92; RESP 16–18; TEMP 36.8–36.9; O2SAT 95–100; BMI 32.7
[2025-03-08] MEDS: Lactated Ringers 1,000 ML 100 ML IVCONT (10:08)
--- NOTE | 2025-03-08 10:22 | P.CONAN_ITS ---
Documented by User: Jacy Anna NP 03/07/25 09:45 HPI - Anesthesia Eval Consult details Narrative: 39yo F for Cholecystectomy Laparoscopic, possible open PMFSH Active Problems Active Problems: All Active Problems Gallstones (Acute) Past Medical History Medical History (Updated 03/08/25 @ 09:40 by Shelly Gracia RN) Gestational diabetes Acid reflux Anemia Back pain Situational anxiety Asthma delivery delivered Seasonal allergies Gallstones Family History Family History (Updated 02/20/25 @ 11:43 by FABI Addison) Father Prostate CA Maternal Grandmother Breast CA Maternal Grandfather Colon cancer Surgical History Surgical History (Updated 03/06/25 @ 15:00 by Monserrat Rooney RN) Hx of tubal ligation History of Social History Social History (Updated 02/20/25 @ 11:44 by FABI Addison) Are you a primary child care worker to a significant other at home: Yes (children- family to assist post-op) Do you presently have visiting nurse or other home services: No Alcohol intake: current Alcohol intake frequency: holidays/special occasions only Patient Tobacco Use Status: Never used Tobacco Use of substances other than those prescribed or required for medical reasons: No Have you been hit, kicked, punched, or otherwise hurt by someone within the past year? If so, by whom?: No Are you DNR?: No Advance Directives: No Advance Directives Information Provided: Yes Advance Directives on File: No Patient : No FDLMP: 02/13/2025 : No Poor oral hygiene: No Meds Allergies Allergy/AdvReac Type Severity Reaction Status Date / Time almond Allergy Itching, Verified 03/06/25 15:23 sob, swelling, wheezing apple Allergy Itching, Verified 03/06/25 15:23 swelling ruth Allergy itching, Verified 03/06/25 15:23 sob, swelling kiwi Allergy Itching Verified 03/06/25 15:23 latex Allergy multiple Verified 03/06/25 15:24 predictors of allergy peach Allergy Itching Verified 03/08/25 09:42 pineapple Allergy Itching Verified 03/06/25 15:23 pollen extracts Allergy coughing, Verified 03/06/25 15:23 itching, runny nose Home Medications ?Medication ?Instructions ?Recorded ?Confirmed ?Last Taken ?Type fluticasone furoate 27.5 1 spray intranasal DAILY 02/20/25 03/06/25 Unknown History mcg/actuation nasal spray,suspension (Flonase Sensimist) loratadine 10 mg tablet (Allergy 10 mg PO DAILY 02/20/25 03/06/25 03/08/25 History Relief (loratadine)) acetaminophen 500 mg tablet 1,000 mg PO Q6H PRN Pain 03/06/25 03/06/25 Unknown History albuterol sulfate 90 mcg/actuation 2 puff inhalation Q4-6H PRN 03/06/25 03/06/25 Unknown History aerosol inhaler Shortness Of Breath Or Wheezing azelastine 137 mcg (0.1 %) nasal 1 spray intranasal BID 03/06/25 03/06/25 Unknown History spray cetirizine 10 mg tablet (Zyrtec) 10 mg PO .DAILY@1400 PRN Allergy 03/06/25 03/06/25 Unknown History Symptoms ferrous sulfate 325 mg (65 mg 325 mg PO QAM 03/06/25 03/06/25 Unknown History iron) tablet metronidazole 0.75 % (37.5 mg/5 1 appful vaginal 2XW 03/06/25 03/06/25 Unknown History gram) vaginal gel Exam Height,Weight and Vital Signs: Height 5 ft 6 in Weight 95.254 kg Pertinent Lab Results Pertinent Lab Results: Laboratory Tests 12/18/24 15:46 WBC 7.2 Hgb 9.7 L Hct 31.0 L Plt Count 249 Sodium 142 Potassium 3.3 Chloride 111 H Carbon Dioxide 24 BUN 12 Creatinine 0.66 Assessment and Plan Assessment Anesthesia Assessment: Chart Reviewed Documented by User: Jen Patrick DO 03/08/25 10:25 PMF Past Medical History Medical History (Updated 03/08/25 @ 09:40 by Shelly Gracia RN) Gestational diabetes Acid reflux Anemia Back pain Situational anxiety Asthma delivery delivered Seasonal allergies Gallstones Family History Family History (Updated 02/20/25 @ 11:43 by FABI Addison) Father Prostate CA Maternal Grandmother Breast CA Maternal Grandfather Colon cancer Family history of problems with anesthesia: No Surgical History Surgical History (Updated 03/06/25 @ 15:00 by Monserrat Rooney RN) Hx of tubal ligation History of History of Problems with Anesthesia: No Social History Social History (Updated 02/20/25 @ 11:44 by FABI Addison) Are you a primary child care worker to a significant other at home: Yes (children- family to assist post-op) Do you presently have visiting nurse or other home services: No Alcohol intake: current Alcohol intake frequency: holidays/special occasions only Patient Tobacco Use Status: Never used Tobacco Use of substances other than those prescribed or required for medical reasons: No Have you been hit, kicked, punched, or otherwise hurt by someone within the past year? If so, by whom?: No Are you DNR?: No Advance Directives: No Advance Directives Information Provided: Yes Advance Directives on File: No Patient : No FDLMP: 02/13/2025 : No Poor oral hygiene: No Meds Allergies Allergy/AdvReac Type Severity Reaction Status Date / Time almond Allergy Itching, Verified 03/06/25 15:23 sob, swelling, wheezing apple Allergy Itching, Verified 03/06/25 15:23 swelling ruth Allergy itching, Verified 03/06/25 15:23 sob, swelling kiwi Allergy Itching Verified 03/06/25 15:23 latex Allergy multiple Verified 03/06/25 15:24 predictors of allergy peach Allergy Itching Verified 03/08/25 09:42 pineapple Allergy Itching Verified 03/06/25 15:23 pollen extracts Allergy coughing, Verified 03/06/25 15:23 itching, runny nose Home Medications ?Medication ?Instructions ?Recorded ?Confirmed ?Last Taken ?Type fluticasone furoate 27.5 1 spray intranasal DAILY 02/20/25 03/06/25 Unknown History mcg/actuation nasal spray,suspension (Flonase Sensimist) loratadine 10 mg tablet (Allergy 10 mg PO DAILY 02/20/25 03/06/25 03/08/25 History Relief (loratadine)) acetaminophen 500 mg tablet 1,000 mg PO Q6H PRN Pain 03/06/25 03/06/25 Unknown History albuterol sulfate 90 mcg/actuation 2 puff inhalation Q4-6H PRN 03/06/25 03/06/25 Unknown History aerosol inhaler Shortness Of Breath Or Wheezing azelastine 137 mcg (0.1 %) nasal 1 spray intranasal BID 03/06/25 03/06/25 Unknown History spray cetirizine 10 mg tablet (Zyrtec) 10 mg PO .DAILY@1400 PRN Allergy 03/06/25 03/06/25 Unknown History Symptoms ferrous sulfate 325 mg (65 mg 325 mg PO QAM 03/06/25 03/06/25 Unknown History iron) tablet metronidazole 0.75 % (37.5 mg/5 1 appful vaginal 2XW 03/06/25 03/06/25 Unknown History gram) vaginal gel Exam Exam Date and Time: 03/08/25 1022 Height,Weight and Vital Signs: Height 5 ft 6 in Weight 95.254 kg Vital Signs Temperature 98.2 F 03/08/25 09:50 Pulse Rate 86 03/08/25 09:50 Respiratory Rate 16 03/08/25 09:50 Blood Pressure 125/78 03/08/25 09:50 Pulse Oximetry 96 03/08/25 09:50 Oxygen Delivery Method Room Air 03/08/25 09:50 Temperature 98.2 F 03/08/25 09:50 Pulse Rate 86 03/08/25 09:50 Respiratory Rate 16 03/08/25 09:50 Blood Pressure 125/78 03/08/25 09:50 Pulse Oximetry 96 03/08/25 09:50 Oxygen Delivery Method Room Air 03/08/25 09:50 Airway Mallampati Class: I TM Dist: >3cm Neck ROM: Full Loose/Missing/Broken Teeth: No (patient denies any loose or broken teeth) Heart: S1S2 Lungs: CTAB Assessment and Plan Assessment Anesthesia Assessment: Anesthesia Plan Discussed and Chart Reviewed Final Anesthetic Review Family History of Problems with Anesthesia: No History of Problems with Anesthesia: No NPO: Yes ASA Class: II Final Preanesthetic Review: No Changes in Pt Med Stat, Meds/Allgs Chart Reviewed, Consent Obtained/Reviewed and Anes Risks/Benef Reviewed Patient Risk: Low Procedure Risk: Intermediate Anesthetic Plan Anesthetic Plan: GA and Agree w/ Assess. and Plan Disposition: Standard PACU
--- NOTE | 2025-03-08 11:00 | MHC.SHP ---
Pre-Procedural Eval Section A - 24 Hr Update-Section A only Date of Service: 03/08/25 The patient is an INPATIENT: No Changes since office visit: No Cold of Flu in the past 2 weeks, No New Medical Problems, No Changes in Medication and No Patient answered all questions The patient has been examined within 24 hours of the surgical procedure. The History & Physical has been completed within 30 days and I have reviewed it.: Yes Section B - Complete if H&P > 30 days Chief Complaint: Calculus of gallbladder without cholecystitis with Allergies: Allergies Allergy/AdvReac Type Severity Reaction Status Date / Time almond Allergy Itching, Verified 03/06/25 15:23 sob, swelling, wheezing apple Allergy Itching, Verified 03/06/25 15:23 swelling ruth Allergy itching, Verified 03/06/25 15:23 sob, swelling kiwi Allergy Itching Verified 03/06/25 15:23 latex Allergy multiple Verified 03/06/25 15:24 predictors of allergy peach Allergy Itching Verified 03/08/25 09:42 pineapple Allergy Itching Verified 03/06/25 15:23 pollen extracts Allergy coughing, Verified 03/06/25 15:23 itching, runny nose Plan I have reviewed the history and physical and performed a pertinent physical examination on my patient. No changes have occurred unless specified. Time Spent With Patient Time: Total time managing care of this patient today ____ minutes.
--- NOTE | 2025-03-08 12:20 | P.OP_ITS ---
Operative Note Operative Note Date of Service: 03/08/25 Narrative: Preop diagnosis: Symptomatic gallstones Postop diagnosis: The same Procedure: Laparoscopic cholecystectomy Surgeon: Daren Kern MD assistant branch operations manager: BARBARA Gregory The patient is a 39-year-old female with upper abdominal pain with gallstones on ultrasound. In view of the likelihood of her symptoms coming from her gallstones, she wanted to proceed with cholecystectomy. She understood the technique of laparoscopic cholecystectomy. She was aware of the risks, benefits, and alternatives. She was brought to the operating room. She was placed supine under general anesthesia via endotracheal tube. The abdomen was prepped and draped in the usual sterile fashion. A surgical time-out was done. The patient received Cefotan 2 g IV preoperatively I made a short supraumbilical incision with a blade 15.This was carried down through the full-thickness of the skin and subcutaneous fat down to the fascia. The fascia was incised. The peritoneum was entered. Through this incision a Roberts port was introduced. Pneumoperitoneum was introduced to a pressure of 15 mm Hg. From here on the rest of the procedure was done under vision with the 10 mm laparoscope. With laparoscopic visualization and inserted a 5/12 mm port in the epigastric area below the subcostal margin. Two 5 mm ports were introduced below the subcostal margin along the anterior axillary line and the midclavicular line. Graspers were placed through these working ports. The patient was placed in the head-down [id number] position. The gallbladder was seen. We are able to apply a grasper on the fundus. This was used to retract the gallbladder cephalad. I was able to apply another grasper towards the pouch and this was used to retract the gallbladder laterally. At this point therefore the gallbladder was being retracted in cephalad and lateral fashion to put the area of the cystic duct on stretch. The cystic duct was noted to be very short. We therefore had to do careful dissection with the [place] dissector to release fibrous and areolar tissue from the neck allow us a better definition of the cystic duct. We continued with the dissection until we are able to achieve a circumferential exposure of the cystic duct. I clearly identified its confluence with the neck of the gallbladder. Furthermore, we could see the transition into the bile duct clearly. We therefore achieved a critical view of the hepatocystic triangle. The cystic artery was also easily seen near the duct I applied clips on the cystic duct with 2 clips being applied distally. We were careful as to not to apply the clip on the common bile duct. The cystic duct was transected between clips with Endo scissors. I carefully dissected the artery some more. I then applied clips with 2 clips being applied distally in the cystic artery was transected between clips with Endo scissors. We traction on the gallbladder away from the liver bed, I proceeded to then divide the rest of the hilum with the L hook electrocautery. I gently dissected the peritoneum of the gallbladder with the L hook electrocautery to carefully define a plane of dissection between the gallbladder wall and the liver bed. I developed this plane of dissection carefully all the way to the fundus anterior the entire gallbladder was completely . The gallbladder was retrieved through an endobag through the umbilical incision. I reinserted all ports and re- insufflated I observed for hemostasis. There was note of a little bit of oozing from the distal part of the ileum. I applied a clip on this area. I also positioned Gelfoam packing in this area. We observed for about a minute and there was no evidence of any significant bleeding in the area I examined all 4 quadrants. There was evidence of any bowel injury or any other pathology I then we observed the subhepatic space. There was no evidence of any bleeding. I therefore desufflated the port sites. I removed the ports under vision with the laparoscope and the umbilical port was removed last. The fascia of the umbilical incision was closed with a [id number]-[id number]-yxuju of 0 stitch. Skin closure was achieved on all incisions using Polysorb 4-0 subcuticular running sutures. All incisions were infiltrated with a Marcaine 0.5% for postop analgesia. Dressings were applied. The procedure was completed The patient tolerated the procedure well. There were no immediate complications. Initial and final counts of sponges and instruments were correct. Estimated blood loss about 25 cc The patient was extubated without difficulty and transferred to the recovery room with stable vital signs.
[2025-03-08] MEDS: Haloperidol Lactate 5 MG/ML VIAL 1 MG IVPUSH (12:24)
[2025-03-08] MEDS: ondansetron HCL 4 MG/2 ML VIAL IVPUSH (12:46)
[2025-03-08] MEDS: HYDROmorphone HCl 0.5 MG/0.5 ML SYRINGE IVPUSH (12:53)
== END 2025-03-08 15:19 | disposition home or self-care (01) ==
PROVIDERS: PCP Internal Medicine; Visit Provider Surgery
PROC: 0FT44ZZ Resection of Gallbladder, Percutaneous Endoscopic Approach (ICD-10-PCS; CPT 47562; principal; 2025-03-08 12:00)
DX: K80.10 Calculus of gallbladder with chronic cholecystitis without obstruction (principal); R10.13 Epigastric pain; J45.909 Unspecified asthma, uncomplicated; K21.9 Gastro-esophageal reflux disease without esophagitis; D64.9 Anemia, unspecified; M54.9 Dorsalgia, unspecified; F41.8 Other specified anxiety disorders; Z91.040 Latex allergy status; Z79.51 Long term (current) use of inhaled steroids; Z79.899 Other long term (current) drug therapy; Z98.51 Tubal ligation status
CPT/HCPCS: 47562; 88304; J0131; J1100; J1171; J1630; J1885; J2003; J2405; J2704; J2795; J3010

== ENCOUNTER → 2025-03-08 09:34 | Outpatient (BNV) | payer MEDICAID, SELFPAY | PROVIDERS: PCP Internal Medicine; Visit Provider Surgery | DX: K80.10 Calculus of gallbladder with chronic cholecystitis without obstruction (principal) | CPT/HCPCS: 47562 ==

== ENCOUNTER 2025-03-20 10:56 | Outpatient (AMB) | payer MEDICAID, SELFPAY ==
--- NOTE | 2025-03-20 11:14 | MHC.OFFVIS ---
Vital Signs 03/20/25 11:21 Height 5 ft 6 in Weight 203 lb BMI 32.8 BP 132/80 Blood Pressure Location Rt brachial Position Sitting Pulse 80 Intake Visit Reasons: S/P lap felicity Intake Note: Patient here s/p Laparoscopic cholecystectomy. Reports incisions healing well. Patient c/o: steri strips in placed. Dexter sick with oxycodone. Alternating Tylenol and Ibuprofen. Surgery: 03-08-2025 Transportation Engineer Required: No Accompanied by: Self / Same As Patient Allergies almond Allergy (Verified 03/20/25 11:21) Itching, sob, swelling, wheezing apple Allergy (Verified 03/20/25 11:21) Itching, swelling ruth Allergy (Verified 03/20/25 11:21) itching, sob, swelling kiwi Allergy (Verified 03/20/25 11:21) Itching latex Allergy (Verified 03/20/25 11:21) multiple predictors of allergy peach Allergy (Verified 03/20/25 11:21) Itching pineapple Allergy (Verified 03/20/25 11:21) Itching pollen extracts Allergy (Verified 03/20/25 11:21) coughing, itching, runny nose HPI HPI S/P lap felicity: Details: She underwent laparoscopic cholecystectomy as an outpatient last 03/08/2025. She tolerated procedure well. Her main complaint today is constipation. Otherwise she says her pain has been improving well. She has good oral intake. She denies any fever. [facility] Medical History Gestational diabetes Acid reflux Anemia Back pain Situational anxiety Asthma delivery delivered Seasonal allergies Gallstones Surgical History Hx laparoscopic cholecystectomy (03/08/25) Hx of tubal ligation History of Family History Father Prostate CA Maternal Grandmother Breast CA Maternal Grandfather Colon cancer Social History Are you a primary customer care specialist to a significant other at home: Yes (children-family to assist post-op) Do you presently have visiting nurse or other home services: No Alcohol intake: current Alcohol intake frequency: holidays/special occasions only Patient Tobacco Use Status: Never used Tobacco Review of Systems Const Denies chills and Denies fever(s) Card Denies chest pain Resp Denies cough GI Denies vomiting Physical Exam Vital Signs: Last Vital Signs Pulse 80 03/20/25 11:21 BP 132/80 03/20/25 11:21 BMI result Body Mass Index 32.8 Const General: comfortable and no acute distress Eyes Other: Anicteric Resp Effort & Inspection: normal respiratory effort GI Other: All incisions are well healed Palpation (GI): Soft to palpation, not firm, nontender and no guarding Assessment & Plan Assessment & Plan (1) Gallstones: Code(s): K80.20 - Calculus of gallbladder without cholecystitis without obstruction Category: Medical Plan: Status post laparoscopic cholecystectomy. She tolerated the procedure well. She is doing very well postop. All incisions are well healed. She was advised to avoid lifting anything more than 20 lb for 2 more weeks She can otherwise follow up on a p.r.n. basis. Coding Level of Care Code Global (74470) Diagnoses Gallstones K80.20
[2025-03-20 11:21] VITALS: BP 132/80; PULSE 80; BMI 32.8
--- OUTSIDE RECORDS SUMMARY | 2025-03-20 12:28 | XMS_ITS | Encounter Summary ---
Author Organization [employer] Address [address] [place] [address] 7[address] [place] [address] Care Team Providers Care Hand Tire Trimmer Name Role Phone Daren Villanueva MD Primary Care Provider [phone] Reason for Referral * Consultation (Urgent) - Closed Specialty Diagnoses / Procedures Referred By Contac t Referred To Contact General Surgery Diagnoses Calculus of gallbladder with acute cholecystitis without obstruction Daren Villanueva MD [address] [place] [address] Phone: tel: fax: [facility] [address] [place] [address] [address] [place], [place] Phone: tel: fax: Referral ID Status Reason Start Date Expiration Date V isits Requested Visits Authorized [id number] Closed Specialty Services Required 02/01/2025 02/01/2026 1 1 Encounter Details Date Type Department Care Team (Late st Contact Info) Description 02/01/[address] [facility] [address] [place] [address] Daren Villanueva MD [address] [place] [address] Calculus of gallbladder with acute cholecystitis without [...] as of this encounter Plan of Treatment Upcoming Encounters Date Type Department Care Team ([facility] st Contact Info) Description 06/03/2025 11:00 AM EDT Office Visit [facility] [address] [place] [address] Daren Villanueva MD [address] [place] [address] documented as of this encounter Procedures Procedure [...] documented as of this encounter Care Teams Hand Tire Trimmer Relationship Specialty Start Date End Date Daren Villanueva MD [address] [place] [id number] PCP - General Internal Medicine 08/30/11 documented as of this encounter
== END 2025-03-20 11:38 | disposition home or self-care (01) ==
LOC: HO.HGS 10:56
PROVIDERS: PCP Internal Medicine; Visit Provider Surgery
DX: K80.20 Calculus of gallbladder without cholecystitis without obstruction (principal)
CPT/HCPCS: 99024

== ENCOUNTER → 2025-03-20 10:56 | Outpatient (BNVA) | payer MEDICAID, SELFPAY | PROVIDERS: PCP Internal Medicine; Visit Provider Surgery | DX: K80.20 Calculus of gallbladder without cholecystitis without obstruction (principal) | CPT/HCPCS: 99212 ==

== ENCOUNTER 2025-07-15 16:14 | Outpatient (REF) | payer MEDICAID, SELFPAY ==
--- OUTSIDE RECORDS SUMMARY | 2025-07-15 15:30 | XMS_ITS | Encounter Summary ---
Author Organization [employer] Address [address] [place] [address] [address] [address] Care Team Providers Care Insurance Biller Name Role Phone Daren Villanueva MD Primary Care Provider Encounter Details Date Type Department Care Team ([facility] st Contact Info) Description 07/15/2025 3:30 PM EDT Office Visit [facility] [address] [facility] [place], [place] [id number] Daren Villanueva MD [address] [place] [address] Mild intermittent asthma without complication (Primary Dx); Microcytic anemia; Other constipation; Class 2 obesity Social History Tobacco Use Types Packs/Day Years Used Date Smoking Tobacco: Never Smokeless Tobacco: Never Alcohol Use Standard Drinks/Week Comments Never 0 (1 standard drink = 0.6 oz pur e alcohol) Depression Answer Date Recorded Patient Health Questionnaire-9 Score 10 06/03/2025 Patient Health Questionnaire-9 Score 10 06/03/2025 Last PHQ-9: Questionnaire Data Not on file 0 06/03/2025 Housing Stability Answer Date Recorded What is [...] Answer Date Recorded Patient Health Questionnaire-2 Score 4 06/03/2025 Internet Access Answer Date Recorded Internet Access [...] Sign Reading Time Taken Comments Blood Pressure 127/79 07/15/2025 3:38 PM EDT Pulse 100 07/15/2025 3:38 PM EDT Temperature - - Respiratory Rate 20 07/15/2025 3:38 PM EDT Oxygen Saturation 97% 07/15/2025 3:38 PM EDT Inhaled Oxygen Concentration - - Weight 87.1 kg (192 lb) 07/15/2025 3:38 PM EDT Height 168 cm (5' 6.14 ) 07/15/2025 3:38 PM EDT Body Mass Index 30.86 07/15/2025 3:38 PM EDT documented in this encounter Plan of Treatment Upcoming Encounters Date Type Department Care Team (Late st Contact Info) Description 08/30/2025 4:00 PM EST Office Visit [facility] [address] [place] [address] Daren Villanueva MD [address] [place] [address] Scheduled Orders Name Type Priority Associated Diagnoses Orde r Schedule CBC auto differential Lab Routine Mild intermittent asthma without complication Microcytic anemia Expected: 07/15/2025 (Approximate), Expires: 07/15/2026 documented as of this encounter Visit Diagnoses Diagnosis Mild intermittent asthma without complication- Primary Microcytic anemia Unspecified iron deficiency anemia Other constipation Class 2 obesity documented in this encounter Additional Health Concerns Assessment Noted Time PHQ-9 Depression Total Score: 10 06/03/ 025 1:41 PM EDT documented as of this encounter Care Teams Insurance Biller Relationship Specialty Start Date End Date Daren Villanueva MD [address] [place] [id number] PCP - General Internal Medicine 08/30/11 documented as of this encounter
[2025-07-15 18:04] LABS: MANUAL DIFF FLAG NO
[2025-07-15 18:22] LABS: Hematocrit 38.5 % (37.0-47.0); Hemoglobin 12.2 g/dl (12.0-16.0); Imm Gran Abs Auto 0.01 X10*3/uL (0.00-0.03); Imm Gran Pct Auto 0.2 % (0.0-0.4); Lymphocytes Absolute Auto 2.1 X10*3/uL (1.2-4.9); Mean Corpuscular HGB Conc 31.7 g/dl (31.0-35.0); Mean Corpuscular Hemoglobin 25.5 pg (27.0-33.0); Mean Corpuscular Volume 80.5 fL (80.0-98.0); NRBC Abs Auto 0.000 X10*3/uL (0.0-0.012); NRBC Pct Auto 0.0 /100WBC (0.0-0.2); Platelet Count 218 X10*3/uL (160-400); Red Blood Count 4.78 X10*6/uL (4.20-5.50); White Blood Count 6.2 X10*3/uL (4.8-10.8)
--- OUTSIDE RECORDS SUMMARY | 2025-07-15 18:27 | XMS_ITS | Clinical Summary ---
Author Organization [employer] Address [address] [place] [address] 7 [place] [address] Care Team Providers Care Ammunition Storage Superintendent Name Role Phone Daren Villanueva MD Primary Care Provider Allergies Active Allergy Reactions Criticality Noted Date Comments [place] Meal (Obsolete) Itching,Shortness of breath,Swelling,Whee zing High 02/17/2007 [place] Oil 04/02/2024 Apple Fruit Extract Itching,Swelling 02/17/2005 Apple Juice 04/02/2024 Yoo Itching,Shortness of breath,Swelling High 02/17/2005 Other Reaction(s): eyes itching, face swelling Gramineae Pollens 04/02/2024 Kiwi Extract Itching 02/17/2005 Latex Itching 10/29/2020 no reactions to latex in past but mulitple predictors of allergy from food allergies Pear Itching 02/17/2005 Pineapple Itching 02/17/2005 Pollen Extract Cough,Itching,Runny nose,Shortness of breath,Swelling,Whee zing High 01/23/2001 Medications MV & Min w/FA-DHA ([facility] Gummy) 0.4-25 MG chewable tablet TAKE 1 TABLET BY MOUTH EVERY DAY FOR 90 DAYS *NOT COVERED* 023 Active azelastine (Astelin) 0.1 % nasal sprayIndication s:Mild intermittent asthma without complication Administer 1 spray into each nostril 2 times daily. Use in each nostril as directed 30 mL 3 025 2025 Active loratadine (Claritin) 10 MG tabletIndicatio ns:Mild intermittent asthma without complication TAKE ONE TABLET DAILY 90 tablet Active ferrous sulfate (Fe Tabs) 325 (65 Fe) MG EC tabletIndicatio ns:Microcytic anemia Take 1 tablet (325 mg) by mouth with breakfast. Do not crush, chew, or split. 30 tablet 11 025 2025 Active Mometasone Furoate (Asmanex, 120 Metered Doses,) 220 MCG/ACT aerosol powderIndicatio ns:Mild intermittent asthma without complication Inhale 1 Act (220 mcg) Once per day. 1 each 3 Active metroNIDAZOLE (Metrogel) 0.75 % vaginal gel INSERT ONE APPLICATORFUL TWICE A WEEK FOR > THREE MONTHS DIRECTED 70 g 5 Active albuterol 108 (90 Base) MCG/ACT inhalerIndicati ons:Mild intermittent asthma without complication Inhale 2 puffs every 4 (four) hours if needed for wheezing. 18 g 025 2025 Active bisacodyl (Dulcolax) 5 MG EC tabletIndicatio ns:Mild intermittent asthma without complication,Mi crocytic anemia,Other constipation Take 1 tablet (5 mg) by mouth if needed each day for constipation. Do not crush, chew, or split. 30 tablet 025 2024 Active topiramate (Topamax) 25 MG tabletIndicatio ns:Class 2 obesity Take 1 tablet (25 mg) by mouth every 12 (twelve) hours. 60 tablet 11 025 2025 Active phentermine 15 MG capsuleIndicati ons:Class 2 obesity Take 1 capsule (15 mg) by mouth before breakfast. 30 capsule 025 2024 Active albuterol 108 (90 Base) MCG/ACT inhaler Inhale 2 puffs every 4 (four) hours if needed for wheezing. 18 g 023 2024 Discontinued(R eorder (will not trigger notification to Pharmacy)) phentermine 8 MG tabletIndicatio ns:Class 2 obesity Take 1 tablet (8 mg) by mouth Once per day. 28 tablet 025 2024 Discontinued topiramate (Topamax) 25 MG tabletIndicatio ns:Class 2 obesity Take 1 tablet (25 mg) by mouth every 12 (twelve) hours. 60 tablet 11 2024 Discontinued(R eorder (will not trigger notification to Pharmacy)) phentermine 15 MG capsule Take 1 capsule (15 mg) by mouth before breakfast. 30 capsule 2024 Discontinued(T herapy completed) Active Problems Problem Noted Date Diagnosed Date Cervical cancer screening 04/03/2024 Class 2 obesity 04/02/2024 Gestational diabetes mellitus (GDM) 04/02/2024 Mild intermittent asthma without complication Encounters Date Type Department Care Team Description 07/15/2025 3:30 PM EDT Office Visit [facility] [address] [place] [address] Daren Villanueva MD Mild intermittent asthma without complication (Primary Dx); Microcytic anemia; Other constipation; Class 2 obesity 07/15/2025 Travel 07/15/2025 Refill [facility] [address] [place], [place] Pina Bruce [phone] Lopez MD 06/11/2025 Refill [facility] [address] [place] [address] Daren Villanueva MD 06/03/2025 11:00 AM EDT Office Visit [facility] [address] [place], [place] Pina Bruce [phone] Lopez MD Class 2 obesity (Primary Dx); Muscle spasm 06/03/2025 Travel 05/15/2025 Refill [facility] [address] [facility] Pina Olivera-Daren Krishna MD 05/06/2025 10:00 AM EDT Office Visit [facility] [address] [place] [address] Daren Villanueva MD Muscle spasm (Primary Dx); Class 2 obesity; Chronic pain of left knee 05/06/2025 Travel 05/03/2025 Telephone [facility] [address] [place] [address] Daren Villanueva MD Nurse Triage from Last 3 Months Immunizations Immunization Administration [...] Pulse 100 07/15/2025 3:38 PM EDT Temperature 36.6 C (97.9 F) 06/03/2025 11:16 AM EDT Respiratory Rate 20 07/15/2025 3:38 PM EDT Oxygen Saturation 97% 07/15/2025 3:38 PM EDT Inhaled Oxygen Concentration - - Weight 87.1 kg (192 lb) 07/15/2025 3:38 PM EDT Height 168 cm (5' 6.14 ) 07/15/2025 3:38 PM EDT Body Mass Index 30.86 07/15/2025 3:38 PM EDT Plan of Treatment Upcoming Encounters Date Type Department Care Team (Late st Contact Info) Description 08/30/2025 4:00 PM EST Office Visit [facility] [address] [place] [address] Daren Villanueva MD [address] [place] [address] Health Maintenance Due Date Last Done Comments Family Planning (PISQ) 1999 HPV Vaccines (1 - 3-dose series) 1999 Hepatitis B Vaccines (1 of 3 - 19+ 3-dose series) 2003 Pneumococcal Vaccine: Pediatrics (0 to 5 Years) and At-Risk Patients (6 to 49) Years (1 of 2 - PCV) 2003 COVID-19 Vaccine ( - 2024-2 6 season) 2025 09/29/2022, 08/23/2022 Influenza Vaccine (#1) 2025 , 08/02/2019, 07/10/2015 Depression Monitoring 12/04/2025 06/03/2025 , 06/03/2025 Alcohol/Substance Use Screening 12/18/2025 12/18/2024 SDOH Screening 12/18/2025 12/18/2024 Disability Screening 01/18/2026 01/18/2025 Tobacco Screening 07/15/2026 07/15/2025 Mammogram 02/05/2027 02/05/2025 Cervical Cancer Screening 04/03/2027 [...] screening mammogram for malignant neoplasm of breast HEPATITIS C AB W/REFL TO HCV RNA, QN, PCR Routine 12/18/2024 3:46 PM EDT Annual physical exam HIV 1/2 ANTIGEN/ANTIBODY, FOURTH GENERATION W/RFL Routine 12/18/2024 3:46 PM EDT Annual physical exam LIPID PANEL, STANDARD Routine 12/18/2024 3:46 PM EDT Annual physical exam THINPREP IMAGING PAP REFL HPV MRNA(IF ASCUS,ASC-H,LSIL) Routine 04/03/2024 12:00 AM EDT Acute cystitis with hematuria ZZZ HISTORICAL HPV MRNA E6/E7 Routine 08/15/2018 10:08 AM EST from Last 3 Months or Most Recently Relevant to Health Maintenance Results * BI Mammogram Screening Tomosynthesis Bilateral (02/05/2025 3:05 PM EDT) Anatomical Region Laterality Modality Breast Bilateral Mammography 02/05/2025 3:05 PM EDT Narrative 02/11/2025 4:46 PM EDT [facility] [place] [address] Mammography Report Signed Patient: Lakia Brewster MR#: [id number] : 1985 Acct:[id number] Age/Sex: 39 / F ADM Date: 02/05/25 Loc: HO.MAMMO Attending Dr: Daren Villanueva MD Ordering Physician: Daren Villanueva MD Results: 1 Negative Date of Service: 02/05/25 Follow Up: 1 Year From [facility] Mammogram Procedure(s): MM tomosynthesis screening BI Accession Number(s): [id number] cc: Daren Villanueva MD EXAMINATION: MM SCREENING [...] 02/11/2025 04:43 PM EDT RP Dictated By: Isidar Rajan DO Signed By: <Electronically signed by Isidra Rajan DO in OV> 02/11/25 1643 DD/ 1505 TD/TT: 02/05/25 1525 Supervisor Airplane Flight Attendant: Procedure Note Donotuseinterpreter, Image - [facility]/11/[facility] [address] [place], [place] [address] Mammography Report Signed Patient: Susan Brewster#: [id number] : 1985Acct:[id number] Age/Sex: 39 / FADM Date: 02/05/25 Loc: HO.MAMMO Attending Dr: Daren Villanueva MD Ordering Physician: Daren Villanueva MDResults: 1 Negative Date of Service: 02/05/25Follow Up: 1 Year From Orig ina Mammogram Procedure(s): MM tomosynthesis screening BI Accession Number(s): [id number] cc: Daren Villanueva MD EXAMINATION: MM SCREENING [...] 02/11/25 1643 DD/ 1505 TD/TT: 02/05/25 1525 Supervisor Airplane Flight Attendant: us Daren Villanueva MD IMG BI PROCEDURES Final Res ult * Hepatitis C Antibody with Reflex to HCV, RNA, Quantitative, Real-Time PCR (12/18/2024 3:46 PM EDT) Pathologist [facility] Hepatitis C Antibody Nonreactive Nonreactive [facility] Comment:Antibodies to HCV no t detected; does not exclude early acuteHCV infection. Blood Venous blood specimen / Unknown 12/18/2024 3:46 PM EDT 12/18/2024 6:30 PM EDT us Daren Villanueva MD LAB BLOOD ORDERABLES Final Result [facility] [address] [place] [phone] * HIV-1/2 Antigen and Antibodies, Fourth Generation, with Reflexes (12/18/2024 3:46 PM EDT) HIV AB/AG Nonreactive Nonreactive [facility] Comment:HIV-1 p24 Ag and/or HIV-1/HIV-2 Ab not detected.A test result that is nonreactive does not exclude thepossibility of exposure to or infection with HIV-1 and/orHIV-2. Nonreactive results in this assay for individualswith prior exposure to HIV-1 and/or HIV-2 may be due toantigen and antibody levels that are below the limit ofdetection of this assay.The Herotainment HIV Ag/Ab Combo assay result andsupplemental assay [...] Organization Address [facility]/ZIP Co de Phone Number [facility] [address] [place] [phone] * Lipid Panel, Standard (12/18/2024 3:46 PM EDT) Triglycerides 81 <150 mg/dL [facility] Comment:Desirable Triglyceri de: less than 150 mg/dLBorderline High Triglyceride 150-199 mg/dLHigh Triglyceride: 200-499 mg/dLVery High Triglyceride: greater than or equal to 5OO mg/dL Cholesterol 149 <200 mg/dL [facility] Comment:Desirable Cholestero l: less than 200 mg/dLBorderline High Cholesterol: 200-239 mg/dLHigh Cholesterol: greater than 239 mg/dL LDL Cholesterol Calculated 79 <100 mg/dL [facility] Comment:Desirable LDL: less than 100 mg/dLNear Optimal/Above Optimal LDL: 110- 129 mg/dLBorderline High LDL: 130-159 mg/dLHigh LDL: 160-189 mg/dLVery High LDL: greater than or equal to 190 mg/dL HDL Cholesterol 54 >40 mg/dL [facility] Comment:Desirable HDL: great er than 40 mg/dL Note: This HDL assay may give artificially low results in patients with liver disease. Blood Venous blood specimen / Unknown 12/18/2024 3:46 PM EDT 12/18/2024 6:30 PM EDT us Daren Villanueva MD LAB BLOOD ORDERABLES Final Result Performing Organization Address [facility]/ZIP Co de Phone Number [facility] [address] [place] [phone] * ThinPrep?? Imaging Pap Refl HPV mRNA(if ASCUS,ASC-H,LSIL,HSIL,MAICO)Refl Genotype (04/03/2024 12:00 AM EDT) HPV nRNA E6/E7 [facility] HPV 16,18/45 [facility] SOURCE: SEE NOTE [facility] Comment:None given Report Status: [facility] Clinical Information: SEE NOTE [facility] Comment:None given LMP: SEE NOTE [facility] Comment:NONE GIVEN Prev. PAP: SEE NOTE [facility] Comment:NONE GIVEN Prev. BX: SEE NOTE [facility] Comment:NONE GIVEN Statement Of Adequacy: SEE NOTE [facility] Comment:Satisfactory for marquita luation.Endocervical/transformation zone componentpresent. General Categorization: [facility] Interpretation/Result: SEE NOTE [facility] Comment:Cytology Results: Ne gative for intraepitheliallesion or malignancy. Cytology Comment SEE NOTE [facility] Comment:This Pap test has be en evaluated with computerassisted technology. Plant Technical Specialist: SEE NOTE [facility] Comment:SXA, CT(ASCP)CT scre ening location: [address] [address] Review Plant Technical Specialist: [facility] Pathologist [facility] PAP Infection [facility] See Note SEE [facility] Comment:EXPLANATORY NOTE:The Pap is a screening test for cervical cancer. It isnot a diagnostic test and is subject to false negativeand false positive results. It is most reliable when asatisfactory sample, regularly obtained, is submittedwith relevant clinical findings and history, and whenthe Pap result is evaluated along with historic andcurrent clinical information.THIS TEST WAS PERFORMED AT:[employer] [address] [phone] PICKETT MD 04/03/2024 04/03/2024 us Diann Pineda MD LAB CYTOLOGY ORDERABLES Final Result [facility] [address] [place] [phone] * HPV mRNA E6/E7 (08/15/2018 10:08 AM EST) HPV mRNA E6/E7 Not Detected NOT DETECTED [facility] Comment: This test was performed using the APTIMA(R) HPV Assay ([employer] This assay detects E6/E7 viral messenger RNA (mRNA) from 14 high-risk HPV types (16,18,31,33,35,39,45,51, 52,56,58,59,66,68). For additional information please refer to: http://education.[employer]/faq/NNK562x2 (This link is being provided for informational/ educational purposes only.) The analytical performance characteristics of this assay have been determined by [employer] [place], [place]. The modifications have not been cleared or approved by the FDA. This assay has been validated pursuant to the CLIA regulations and is used for clinical purposes. Test Performed by [facility], [employer] [place], [address] [place] [address] Rickie Cobian M.D., Ph.D., Director of Laboratories , CLIA [id number] Please note: Effective 06/21/2016, HPV testing will be performed using [employer]'s APTIMA test which targets mRNA. Detecting mRNA instead of DNA, as in older methods, offers significant improvements in specificity. 08/15/2018 10:0 8 AM EST us Nia Reyes CNM HISTORICAL/NON ORDERABLE LABS Final Result [facility] [address] from Last 3 Months or Most Recently Relevant to Health Maintenance Insurance [facility] [employer] C3 Care Teams Ammunition Storage Superintendent Relationship Specialty Start Date End Date Daren Villanueva MD [address] [place] [address] [place] [address] PCP - General Internal Medicine 08/30/11
--- OUTSIDE RECORDS SUMMARY | 2025-07-15 18:27 | XMS_ITS | Encounter Summary ---
Author Organization [employer] Address [address] [facility] 7t [place] [address] Care Team Providers Care Software Development Leader Name Role Phone Daren Villauneva MD Primary Care Provider [phone] Encounter Details Date Type Department Care Team (Latest Contact Info) Description 07/15/2025 Travel Social History Tobacco Use Types Packs/Day [...] the past 12 months, has t he [employer], oil or water company threatened to shut [...] Description 08/30/2025 4:00 PM EST Office Visit [facility] [address] [place] [address] Daren Villanueva MD [address] [place] [address] documented as of this encounter Visit Diagnoses Not on filedocumented in this encounter Additional Health Concerns Assessment Noted Time PHQ-9 Depression Total Score: 10 025 1:41 PM EDT documented as of this encounter Care Teams Software Development Leader Relationship Specialty Start Date End Date Daren Villanueva MD [address] [place] [address] PCP - General Internal Medicine 08/30/11 documented as of this encounter
--- OUTSIDE RECORDS SUMMARY | 2025-07-15 18:27 | XMS_ITS | Clinical Summary ---
Author Organization [facility] Address [address] [place] [address] Care Team Providers Care Physician Non Invasive Cardiologist Name Role Phone Unavailable Primary Care Provider [...] Cervical Cancer Screening: P ap Smear 2005 HPV Vaccines (1 - 3-dose SCD M series) 2011 Depression Screening 10/10/2024 COVID-19 Vaccine ( - 2023-2 5 season) 2025 Influenza Vaccine (#1) 2025 RSV Immunization Adult Patie nts (1 - 1-dose 75+ series) 2059 HIB Vaccines Aged Out No longer eligi [...] 5 Years) and At-Risk Patients (6 to 49 Years) Aged Out No longer eligible b ased on patient's age to complete this topic RSV Immunization Patients Un mariel 20 months Aged Out No longer eligible b ased on patient's age to complete this topic Varicella Vaccines Aged Out No longer eligible based on patient's age to complete this topic
--- OUTSIDE RECORDS SUMMARY | 2025-07-15 18:27 | XMS_ITS | Encounter Summary ---
Author Organization [employer] Address [address] [place] [address] Care Team Providers Care Quality Assurance Coach Name Role Phone Daren Villanueva MD Primary Care Provider [phone] Encounter Details Date Type Department Care Team ([facility] Contact Info) Description 04/18/2023 Telephone [facility] [address] [place] [address] Daren Villanueva MD [address] [place] [address] Social History Tobacco Use Types Packs/Day Years [...] Encounters Date Type Department Care Team (Late Contact Info) Description 08/30/2025 4:00 PM EST Office Visit [facility] [address] [place], [place] [phone] Daren Villanueva MD [address] [place] [address] documented as of this encounter Visit Diagnoses Not on filedocumented in this encounter Care Teams Quality Assurance Coach Relationship Specialty Start Date End Date Daren Villanueva MD [address] [place] [phone] PCP - General Internal Medicine 08/30/11 documented as of this encounter
--- OUTSIDE RECORDS SUMMARY | 2025-07-15 18:27 | XMS_ITS | Encounter Summary ---
Author Organization [employer] Address [address] [place] [address] Care Team Providers Care Sap Trainer Name Role Phone Daren Villanueva MD Primary Care Provider [phone] Reason for Visit * Reason Comments Med Refill Encounter Details Date Type Department Care Team ([facility] st Contact Info) Description 07/15/2025 Refill [facility] [address] [place] [address] Daren Villanueva MD [address] [place], [place] [phone] Social History Tobacco Use Types Packs/Day Years [...] Description 08/30/2025 4:00 PM EST Office Visit [facility] [address] [place] [address] Daren Villanueva MD [address] [place] [address] documented as of this encounter Visit Diagnoses Not on filedocumented in this encounter Additional Health Concerns Assessment Noted Time PHQ-9 Depression Total Score: 10 025 1:41 PM EDT documented as of this encounter Care Teams Sap Trainer Relationship Specialty Start Date End Date Daren Villanueva MD [address] [place] [address] PCP - General Internal Medicine 08/30/11 documented as of this encounter
--- OUTSIDE RECORDS SUMMARY | 2025-07-15 18:27 | XMS_ITS | Encounter Summary ---
Author Organization [employer] Address [address] [address] Care Team Providers Care Protective Signal Operations Supervisor Name Role Phone Daren Villanueva MD Primary Care Provider [phone] Encounter Details Date Type Department Care Team (Late st Contact Info) Description 12/19/2024 Orders Only [facility] [address] [place] [address] Daren Villanueva MD [address] [facility] [place] [phone] Microcytic anemia (Primary Dx); Urinary tract infection [...] Description 08/30/2025 4:00 PM EST Office Visit [facility] [address] [place] [address] Daren Villanueva MD [address] [place] [address] Scheduled Orders Name Type Priority Associated Diagnoses [...] documented as of this encounter Care Teams Protective Signal Operations Supervisor Relationship Specialty Start Date End Date Daren Villanueva MD [address] [place] [address] PCP - General Internal Medicine 08/30/11 documented as of this encounter
--- OUTSIDE RECORDS SUMMARY | 2025-07-15 18:27 | XMS_ITS | Encounter Summary ---
Author Organization [employer] Address [address] [place] [address] 7[place] [address] Care Team Providers Care Coin Purse Framer Name Role Phone Daren Villanueva MD Primary Care Provider [phone] Reason for Referral * Consultation (Urgent) - Closed Specialty Diagnoses / Procedures Referred By Contac t Referred To Contact General Surgery Diagnoses Calculus of gallbladder with acute cholecystitis without obstruction Daren Villanueva MD [address] [place] [address] Phone: tel: fax: [facility] [address] [place] [address] [address] [place], [place] Phone: tel: fax: Referral ID Status Reason Start Date Expiration Date V isits Requested Visits Authorized [id number] Closed Specialty Services Required 02/01/2025 02/01/2026 1 1 Encounter Details Date Type Department Care Team (Late st Contact Info) Description 02/01/2025 Orders Only [facility] [address] [place] [address] Daren Villanueva MD [address] [place] [address] Calculus of gallbladder with acute cholecystitis without [...] Upcoming Encounters Date Type Department Care Team ([facility] st Contact Info) Description 08/30/2025 4:00 PM EST Office Visit [facility] [address] [place] [address] Daren Villanueva MD [address] [place] [address] documented as of this encounter Procedures Procedure [...] documented as of this encounter Care Teams Coin Purse Framer Relationship Specialty Start Date End Date Daren Villanueva MD [address] [place] [address] PCP - General Internal Medicine 08/30/11 documented as of this encounter
== END 2025-07-15 16:15 | disposition home or self-care (01) ==
LOC: HO.CHCLDS 16:14
PROVIDERS: Visit Provider Internal Medicine
DX: J45.20 Mild intermittent asthma, uncomplicated (principal); D50.9 Iron deficiency anemia, unspecified
CPT/HCPCS: 36415; 85025